=== PATIENT | female | born 1995 | race Caucasian/White ===

== ENCOUNTER 2017-12-22 20:02 | Emergency (ER) | payer BC ==
[2017-12-22 21:34] LABS: ABS Basophils 0.1 10^3/ul (0-0.2); ABS Eosinophils 0.6 10^3/ul (0-0.6); ABS Lymphocytes 2.1 10^3/ul (1.0-4.8); ABS Monocytes 0.7 10^3/ul (0-0.8); ABS Nucleated RBC 0 10^3/ul; Eosinophil % 7.4 % (0-6); Hematocrit 39 % (35-47); Hemoglobin 13.2 g/dl (12.0-16.0); Lymphocyte % 25.1 % (25-47); Mean Corpuscular HGB Conc 34 g/dl (31-36); Mean Corpuscular Hemoglobin 28 pg (27-31); Mean Corpuscular Volume 84 fL (80-97); Mean Platelet Volume 8.5 um3 (7.4-10.4); Nucleated Red Blood Cells % 0; Platelet Count 272 10^3/ul (150-450); Red Blood Count 4.64 10^6/ul (4.00-5.40); Red Cell Distribution Width 13 % (10.5-15); White Blood Count 8.5 10^3/ul (3.5-10.8)
[2017-12-22 21:51] LABS: EGFR Non-African American 85.3 (>60)
[2017-12-23 01:13] VITALS: BP 109/71
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
== END 2017-12-23 00:10 | disposition home or self-care (01) ==
LOC: ED 20:02
DX: F32.9 Major depressive disorder, single episode, unspecified (principal); R45.851 Suicidal ideations; F43.10 Post-traumatic stress disorder, unspecified; F41.9 Anxiety disorder, unspecified
CPT/HCPCS: 36415; 80053; 80320; 80329; 84443; 85025; 93005; 99283; G0480

== ENCOUNTER 2018-03-21 11:33 | Emergency (ER) | payer BC ==
[2018-03-21 12:04] VITALS: BP 133/65
--- NOTE | 2018-03-21 12:07 | UC ---
UC General HPI - HPI Summary HPI Summary: 22 yo female presents accompanied by father with several complaints. She tells me that a couple of months ago she was diagnosed with mono. Over the last week she has felt fatigued. The last 2 days has felt body aches with some nausea. This morning she vomited once. She feels very similar to when she had mono. She has taken ibuprofen with no relief of her symptoms. Denies fever, chills, cough , SOB, chest pain, abdominal pain, diarrhea, dysuria. - History of Current Complaint Chief Complaint: UCGeneralIllness Stated Complaint: BODYACHES,VOMITING Time Seen by Provider: 03/21/18 12:07 Hx Obtained From: Patient Hx Last Menstrual Period: unknown Onset/Duration: Gradual Onset Onset Severity: Moderate Current Severity: Moderate Pain Intensity: 7 - Allergy/Home Medications Allergies/Adverse Reactions: Allergies Allergy/AdvReac Type Severity Reaction Status Date / Time No Known Allergies Allergy Verified 12/22/17 20:11 Home Medications: Home Medications LORazepam [Lorazepam] 0.5 mg PO TID PRN 03/21/18 [History Confirmed 03/21/18] Methylphenidate HCl [Methylphenidate HCl ER] 54 mg PO DAILY 03/21/18 [History Confirmed 03/21/18] Venlafaxine ER (NF) [Effexor ER (NF)] 1 tab PO DAILY 03/21/18 [History Confirmed 03/21/18] PMH/Surg Hx/FS Hx/Imm Hx - Additional Past Medical History Additional PMH: ADHD Psychological History: Anxiety, Depression, Bipolar Disorder - Surgical History Surgical History: Yes Surgery Procedure, Year, and Place: wisdom tooth removal - Family History Known Family History: Positive: None, Other - suicide attempt in father (not completed) Family History: Father: bipolar disorder - Social History Occupation: Student Lives: With Family Alcohol Use: None Substance Use Type: None Smoking Status (MU): Never Smoked Tobacco Review of Systems Constitutional: Fatigue, Other - Body aches Skin: Negative Eyes: Negative ENT: Negative Respiratory: Negative Cardiovascular: Negative Gastrointestinal: Vomiting, Nausea Genitourinary: Negative Neurovascular: Negative Musculoskeletal: Negative Neurological: Negative Psychological: Negative All Other Systems Reviewed And Are Negative: Yes Physical Exam - Summary Physical Exam Summary: GENERAL: NAD. WDWN. No pain distress. SKIN: No rashes, sores, lesions, or open wounds. HEENT: Head: AT/NC Eyes: EOM intact. Conjunctiva clear without inflammation or discharge. Ears: Hearing grossly normal. TMs intact, no bulging, erythema, or edema. Nose: Nasal mucosa pink and moist. NTTP maxillary and frontal sinus. Throat: Posterior oropharynx without exudates, erythema, or tonsillar enlargement. Uvula midline. NECK: Supple. Nontender. No lymphadenopathy. CHEST: CTAB. No r/r/w. No accessory muscle use. Breathing comfortably and in no distress. CV: RRR. Without m/r/g. Pulses intact. Cap refill <2seconds ABDOMEN: Soft. NTTP. No distention or guarding. No organomegaly. No CVA tenderness. Bowel sounds present NEURO: Alert. PSYCH: Age appropriate behavior. Triage Information Reviewed: Yes Vital Signs: Initial Vital Signs Temp 98.2 F 03/21/18 11:54 Pulse 68 03/21/18 11:54 Resp 18 03/21/18 11:54 BP 133/65 03/21/18 11:54 Pulse Ox 100 03/21/18 11:54 Laboratory Tests 03/21/18 03/21/18 03/21/18 12:16 12:28 12:30 POC Urine Color Dark yellow POC Urine Clarity Clear POC Urine pH 6.0 POC Ur Specif Goessel 1.025 POC Urine Protein Negative POC Ur Glucose (UA) Negative POC Urine Ketones Negative POC Urine Blood Negative POC Urine Nitrite Negative POC Urine Bilirubin Negative POC Urine Urobilinogen 0.2 POC U Leukocyte Esteras Trace A POC Ur Test Negative Influenza A (Rapid) Negative Influenza B (Rapid) Negative Vital Signs Reviewed: Yes Course/Dx - Course Course Of Treatment: UA with trace leuks, but she is without dysuria, thus will wait for culture to return. negative. Flu negative. Father is requesting labwork for lyme and mono. Discussed at length that her symptoms are likely viral and that her mono will continue to be positive if she tested positive a few months ago. Pt also would like labwork. Will draw for CBC, CMP, lyme, and mono with EBV. She was given Zofran in the clinical setting with good relief of nausea. F/u with PCP if symptoms persist. - Differential Dx - Multi-Symptom Provider Diagnoses: Viral syndrome. Body aches. Nausea. vomiting Discharge - Sign-Out/Discharge Documenting (check all that apply): Patient Departure All imaging exams completed and their final reports reviewed: No Studies - Discharge Plan Condition: Stable Disposition: HOME Prescriptions: Ondansetron ODT TAB* [Zofran 4 MG Odt TAB*] 4 mg PO Q8H PRN #12 tab.odt MDD 3 PRN Reason: Nausea Patient Education Materials: Mononucleosis (ED), Viral Syndrome (ED) Referrals: Kaykay RAMÍREZ,July Pearce [Primary Care Provider] - Additional Instructions: If you develop a fever, shortness of breath, chest pain, new or worsening symptoms - please call your PCP or go to the ED. 1) Rest and drink plenty of fluids 2) If your symptoms persist or worsen - please follow up with your primary doctor or go to the ER - Billing Disposition and Condition Condition: STABLE Disposition: Home
[2018-03-21] MEDS ORDERED: Ondansetron ODT TAB* 4 MG PO ONE (12:13)
[2018-03-21 16:28] LABS: ABS Basophils 0 10^3/ul (0-0.2); ABS Eosinophils 0.4 10^3/ul (0-0.6); ABS Lymphocytes 2.2 10^3/ul (1.0-4.8); ABS Monocytes 0.5 10^3/ul (0-0.8); ABS Neutrophils 4.7 10^3/ul (1.5-7.7); ABS Nucleated RBC 0 10^3/ul; Eosinophil % 5.4 % (0-6); Hematocrit 40 % (35-47); Hemoglobin 13.8 g/dl (12.0-16.0); Lymphocyte % 27.3 % (25-47); Mean Corpuscular HGB Conc 34 g/dl (31-36); Mean Corpuscular Hemoglobin 28 pg (27-31); Mean Corpuscular Volume 82 fL (80-97); Mean Platelet Volume 9.5 um3 (7.4-10.4); Nucleated Red Blood Cells % 0; Platelet Count 304 10^3/ul (150-450); Red Blood Count 4.89 10^6/ul (4.00-5.40); Red Cell Distribution Width 14 % (10.5-15); White Blood Count 7.9 10^3/ul (3.5-10.8)
[2018-03-21 17:15] LABS: EGFR Non-African American 106.7 (>60)
--- NOTE | 2018-03-23 18:27 | UC ---
- Progress Note Progress Note: CBC, CMP, urine, lyme, and mono all negative However EBV IGM is positive which indicates a viral infection similar to mono that is currently active or has been active within the last 90-120days. Given that she has an extensive hx with mono (over a year ago), lyme, and other tick borne illnesses - I recommend that she follow up with Dr. Smith of infectious disease for further investigation of why her illness becomes seemingly reactivated. Discharge - Sign-Out/Discharge Documenting (check all that apply): Post-Discharge Follow Up All imaging exams completed and their final reports reviewed: No Studies - Discharge Plan Condition: Stable Disposition: HOME Prescriptions: Ondansetron ODT TAB* [Zofran 4 MG Odt TAB*] 4 mg PO Q8H PRN #12 tab.odt MDD 3 PRN Reason: Nausea Patient Education Materials: Mononucleosis (ED), Viral Syndrome (ED) Referrals: Kaykay RAMÍREZ,July Pearce [Primary Care Provider] - Sarah SANTIAGO,Stanton Cuevas [Medical Doctor] - As Soon As Possible Additional Instructions: If you develop a fever, shortness of breath, chest pain, new or worsening symptoms - please call your PCP or go to the ED. 1) Rest and drink plenty of fluids 2) If your symptoms persist or worsen - please follow up with your primary doctor or go to the ER - Billing Disposition and Condition Condition: STABLE Disposition: Home
== END 2018-03-21 12:55 | disposition home or self-care (01) ==
LOC: UCEAST 11:33
DX: B34.9 Viral infection, unspecified (principal); R11.2 Nausea with vomiting, unspecified; Z86.19 Personal history of other infectious and parasitic diseases
CPT/HCPCS: 36415; 80053; 81003; 84702; 85025; 86308; 86618; 86664; 86665; 87086; 99212; A9270-GY; G0463

== ENCOUNTER 2018-08-03 14:25 | Emergency (ER) | payer BC, OTHER ==
[2018-08-03] MEDS ORDERED: Acetaminophen TAB* 325 MG PO ONE (15:48)
--- NOTE | 2018-08-03 17:25 | ED ---
Head Injury - HPI Summary HPI Summary: Pt. is a 22 y.o female who presents to the ER for a head injury that occurred roughly two hours ago. 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. Pt. states when she got out of her call at work today she slipped on ice, fell back and hit the back of her head of the pavement. Pt. states she did not loose consciousness but states she immediately felt very woozy. Pt. states since fall her headache is getting worse and is very light sensitive. Pt. notes nausea without vomiting. Pt. also c /o neck pain. No other injuries were sustained. No past medical hx. Sxs are moderate in severity. - History Of Current Complaint Chief Complaint: EDHeadInjury Stated Complaint: FALL/HIT HEAD Time Seen by Provider: 08/03/18 15:24 Hx Obtained From: Patient Hx Last Menstrual Period: unknown Pain Intensity: 4 - Allergies/Home Medications Allergies/Adverse Reactions: Allergies Allergy/AdvReac Type Severity Reaction Status Date / Time No Known Allergies Allergy Verified 12/22/17 20:11 PMH/Surg Hx/FS Hx/Imm Hx Previously Healthy: Yes Endocrine/Hematology History: Denies: Hx Diabetes Cardiovascular History: Denies: Hx Hypertension Psychiatric History: Reports: Hx Anxiety, Hx Depression, Hx Post Traumatic Stress Disorder Denies: Hx Eating Disorder - Surgical History Surgery Procedure, Year, and Place: wisdom tooth removal Infectious Disease History: No Infectious Disease History: Denies: Traveled Outside the [place] in Last 30 Days - Family History Known Family History: Positive: None, Other - suicide attempt in father (not completed) Family History: Father: bipolar disorder - Social History Occupation: Employed Full-time Lives: With Family Alcohol Use: None Hx Substance Use: No Substance Use Type: Reports: None Hx Tobacco Use: No Smoking Status (MU): Never Smoked Tobacco Review of Systems Positive: Photophobia ENT: Negative Cardiovascular: Negative Negative: Chest Pain Respiratory: Negative Negative: Shortness Of Breath Positive: Nausea. Negative: Abdominal Pain Positive: Other - neck pain Skin: Negative Positive: Headache. Negative: Weakness, Paresthesia, Numbness, Syncope All Other Systems Reviewed And Are Negative: Yes Physical Exam Triage Information Reviewed: Yes Vital Signs On Initial Exam: Initial Vitals Temp Pulse Resp BP Pulse Ox 98.8 F 82 18 152/104 100 08/03/18 14:32 08/03/18 14:32 08/03/18 14:32 08/03/18 14:32 08/03/18 14:32 Vital Signs Reviewed: Yes Appearance: Positive: Well-Appearing - Pt. sitting up in bed appears uncomfortable but nontoxic. Skin: Positive: Warm, Dry Head/Face: Positive: Other - Large hematoma to posterior scalp. No laceration. Eyes: Positive: Normal, EOMI, JEFF, Conjunctiva Clear Neck: Positive: Supple, Other: - Midline tenderness. Respiratory/Lung Sounds: Positive: Clear to Auscultation, Breath Sounds Present Cardiovascular: Positive: Normal Musculoskeletal: Positive: Normal, Strength/ROM Intact Neurological: Positive: Normal, Alert, Oriented to Person Place, Time, CN Intact II-III, Finger to Nose - normal, Facial Symmetry, Speech Normal. Negative: Disoriented, Pronator Drift Present Psychiatric: Positive: Affect/Mood Appropriate - Shaun Coma Scale Best Eye Response: 4 - Spontaneous Best Motor Response: 6 - Obeys Commands Best Verbal Response: 5 - Oriented Coma Scale Total: 15 Diagnostics - Vital Signs Vital Signs Temp Pulse Resp BP Pulse Ox 08/03/18 14:32 98.8 F 82 18 152/104 100 - Laboratory Lab Statement: Any lab studies that have been ordered have been reviewed, and results considered in the medical decision making process. Head Injury Course/Dx Course Of Treatment: Pt. presenting for posterior head injury that occured about 2 hours ago. Pt. is c/o worsening and more intense h/a since fall. She has no neurological deficits on exam. Pt. also c/o midline neck tenderness. Pt. does have a large posterior hematoma after striking pavement. Discussed risk vs benefit of obtain CT scan. Discussed with pt. option of observation. Pt. would like to go ahead with CT scan to r/o bleed/liza fx. Head and neck negative for acute findings other than straightening of lordotic curve. Results discussed. Advised pt. to avoid reading, computer strength in the TV, cellphone screens. Tylenol or Motrin for pain as directed. Ice had intermittently. Close follow-up with family doctor return to the ER if symptoms change or worsen. Work excuse given. He is - Diagnoses Differential Diagnosis/HQI/PQRI: Cerebral Contusion, Cervical Sprain, Concussion Without LOC, Contusion, Hematoma, Intracranial Bleed, Laceration, Skull Fracture Provider Diagnoses: Head injury, Scalp contusion, Cervical strain Discharge - Sign-Out/Discharge Documenting (check all that apply): Patient Departure - Discharge Plan Condition: Good Disposition: HOME Patient Education Materials: Cervical Strain (ED), Concussion (ED), Head Injury (ED) Forms: *Work Release Referrals: Kaykay RAMÍREZ,July Pearce [Primary Care Provider] - Additional Instructions: Call PCP on Monday to schedule a close follow up appointment Tylenol or Motrin for pain as directed Avoid reading, cell phone, TV, and computer use Return to ER if symptoms change or worsen - Billing Disposition and Condition Condition: GOOD Disposition: Home
[2018-08-03 18:03] VITALS: BP 127/84
== END 2018-08-03 18:02 | disposition home or self-care (01) ==
LOC: ED 14:25
DX: S09.90XA Unspecified injury of head, initial encounter (principal); S16.1XXA Strain of muscle, fascia and tendon at neck level, initial encounter; S00.03XA Contusion of scalp, initial encounter; R11.0 Nausea; M54.2 Cervicalgia; W19.XXXA Unspecified fall, initial encounter; Y92.9 Unspecified place or not applicable
CPT/HCPCS: 70450; 72125; 99282; A9270-GY

== ENCOUNTER 2018-12-16 09:24 | Emergency (ER) | payer MEDICARE, OTHER ==
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
[2018-12-16 11:01] VITALS: BP 160/104
== END 2018-12-16 11:10 | disposition home health service (06) ==
LOC: UCEAST 09:24
DX: R10.31 Right lower quadrant pain (principal)
CPT/HCPCS: 81003; 84702; 99212; G0463

== ENCOUNTER 2018-12-16 11:32 | Emergency (ER) | payer MEDICARE, OTHER ==
[2018-12-16] MEDS ORDERED: NS 0.9% 1000 ML** 1,000 ML IV ONE (12:02)
--- NOTE | 2018-12-16 12:05 | ED ---
Abdominal Pain/Female - HPI Summary HPI Summary: Pt. is a 23 y.o female who presents to the ER for RLQ abd. pain x 3 days. Pain started as mild and as increased today. Sharp and nature and worse with movement and palpation. Pt. notes N/V and decreased appetite. Denies vaginal dc , dysuria, flank pain, diarrhea, constipation. Pt. seen at [facility] where they performed a pelvic exam. Pt. states she had right adnexal tenderness on bimanual exam. Pt. states she has an IUD and [facility]. Pt. states she had routine apt. with them this past week and had cultures taken, pending results. Pt. denies concern for STIs. Pain is worse with movement. Rest improves pain. Sxs are moderate in severity. - History of Current Complaint Chief Complaint: EDAbdPain Stated Complaint: LOWER RT ABD PAIN/VOMITING PER PT Time Seen by Provider: 12/16/18 11:46 Hx Obtained From: Patient Hx Last Menstrual Period: 11/24/18 Pain Intensity: 99 Allergies/Adverse Reactions: Allergies Allergy/AdvReac Type Severity Reaction Status Date / Time No Known Allergies Allergy Verified 12/16/18 11:38 Home Medications: Home Medications Gosia 180 (NF) 180 mg PO DAILY PRN 12/16/18 [History Confirmed 12/16/18] PMH/Surg Hx/FS Hx/Imm Hx Previously Healthy: Yes Endocrine/Hematology History: Denies: Hx Diabetes Cardiovascular History: Denies: Hx Hypertension Psychiatric History: Reports: Hx Anxiety, Hx Depression, Hx Post Traumatic Stress Disorder Denies: Hx Eating Disorder - Surgical History Surgery Procedure, Year, and Place: wisdom tooth removal Infectious Disease History: No Infectious Disease History: Denies: Traveled Outside the [place] in Last 30 Days - Family History Known Family History: Positive: None, Other - suicide attempt in father (not completed); mother healthy and we.., Non-Contributory Family History: Father: bipolar disorder - Social History Occupation: Employed Full-time Lives: With Family Alcohol Use: Rare Hx Substance Use: No Substance Use Type: Reports: None Hx Tobacco Use: No Smoking Status (MU): Never Smoked Tobacco Review of Systems Positive: Chills. Negative: Fever Eyes: Negative ENT: Negative Cardiovascular: Negative Respiratory: Negative Positive: Abdominal Pain, Vomiting, Nausea. Negative: Diarrhea Genitourinary: Negative Negative: dysuria, discharge, flank pain All Other Systems Reviewed And Are Negative: Yes Physical Exam Triage Information Reviewed: Yes Vital Signs On Initial Exam: Initial Vitals Temp Pulse Resp BP Pulse Ox 98.3 F 91 18 159/110 99 12/16/18 11:34 12/16/18 11:34 12/16/18 11:34 12/16/18 11:34 12/16/18 11:34 Vital Signs Reviewed: Yes Appearance: Positive: Well-Appearing - Pt. lying in bed in NAD. SO present. Skin: Positive: Warm, Dry Head/Face: Positive: Normal Head/Face Inspection Eyes: Positive: Normal, EOMI, JEFF Neck: Positive: Supple Respiratory/Lung Sounds: Positive: Clear to Auscultation, Breath Sounds Present Cardiovascular: Positive: Normal, RRR Abdomen Description: Positive: Other: - Abd. is soft with tenderness mildly to RUQ and marked tenderness to RLQ with guarding.. Negative: CVA Tenderness (R), CVA Tenderness (L) Musculoskeletal: Positive: Normal, Strength/ROM Intact Neurological: Positive: Normal, CN Intact II-III Psychiatric: Positive: Affect/Mood Appropriate Diagnostics - Vital Signs Vital Signs Temp Pulse Resp BP Pulse Ox 12/16/18 11:34 98.3 F 91 18 159/110 99 - Laboratory Result Diagrams: 12/16/18 12:20 12/16/18 12:20 Lab Statement: Any lab studies that have been ordered have been reviewed, and results considered in the medical decision making process. Abdominal Pain Fem Course/Dx - Course Course Of Treatment: Patient presenting with ongoing worsening right lower quadrant pain with decreased appetite and nausea and vomiting 3 days. She is afebrile with stable vital signs. Patient does have marked tenderness to the right lower quadrant. Given ongoing worsening symptoms will obtain abdominal CT to evaluate for appendicitis. Patient declines pain medication. Blood work is unremarkable. Abd/pelvic CT per radiology: IMPRESSION: 1. NO EVIDENCE FOR APPENDICITIS. 2. 1.5 CM INVOLUTING RIGHT FOLLICULAR CYST AND SMALL AMOUNT OF FREE INTRAPERITONEAL FLUID. IN THE CUL-DE-SAC. 3. HEPATIC STEATOSIS. U/S ordered to evaluate blood flow to right ovary. U/S per radiology: IMPRESSION: 1. There is an involuting/hemorrhagic ovarian follicle in the right ovary. In the absence. of further symptoms, no specific follow-up is indicated in this premenstrual age woman. 2. Appropriately positioned IUD. Results discussed with pt. and family. Will dc home. Advised tylenol or motrin for pain, warm compress. Will f.u with HOME ASSESSMENT NURSE. To return to ER if sxs change or worsen. Pt. understands and agrees with plan. - Diagnoses Differential Diagnosis: Positive: Appendicitis, Constipation, Ectopic , Ovarian Cyst, Pelvic Inflammatory Disease, Peptic Ulcer Disease, Urinary Tract Infection Provider Diagnoses: Ovarian cyst Discharge - Sign-Out/Discharge Documenting (check all that apply): Patient Departure Patient Received Moderate/Deep Sedation with Procedure: No - Discharge Plan Condition: Good Disposition: HOME Patient Education Materials: Ovarian Cyst (ED) Forms: *Work Release Referrals: Wilbert Cohen MD [Medical Doctor] - Kaykay RAMÍREZ,July Pearce [Primary Care Provider] - Additional Instructions: Schedule a follow up appointment with HOME ASSESSMENT NURSE Tylenol or Motrin for pain as directed Can apply warm compresses Return to ER if symptoms change or worsen - Billing Disposition and Condition Condition: GOOD Disposition: Home
[2018-12-16 12:26] LABS: ABS Eosinophils 0.2 10^3/ul (0-0.6); ABS Lymphocytes 1.7 10^3/ul (1.0-4.8); ABS Monocytes 0.5 10^3/ul (0-0.8); Eosinophil % 2.9 %; Hematocrit 45 % (35-47); Hemoglobin 15.2 g/dL (12.0-16.0); Lymphocyte % 22.5 %; Mean Corpuscular HGB Conc 34 g/dL (31-36); Mean Corpuscular Hemoglobin 29 pg (27-31); Mean Corpuscular Volume 86 fL (80-97); Mean Platelet Volume 8.6 fL (7.4-10.4); Platelet Count 257 10^3/uL (150-450); Red Cell Distribution Width 13 % (10-15); White Blood Count 7.5 10^3/uL (3.5-10.8)
[2018-12-16 12:43] LABS: ALT 13 U/L (7-52); AST 17 U/L (13-39); Albumin 4.9 g/dL (3.2-5.2); Albumin/Globulin Ratio 1.7 (1-3); Alkaline Phosphatase 84 U/L (34-104); Anion Gap 7 mmol/L (2-11); BUN/Creatinine Ratio 8.8 (8-20); Blood Urea Nitrogen 7 mg/dL (6-24); CO2 Carbon Dioxide 26 mmol/L (22-32); Calcium 9.8 mg/dL (8.6-10.3); Chloride 105 mmol/L (101-111); EGFR African American 109.6 (>60); EGFR Non-African American 90.5 (>60); Globulin 2.9 g/dL (2-4); Glucose 95 mg/dL (70-100); Potassium 4.6 mmol/L (3.5-5.0); Sodium 138 mmol/L (135-145); Total Protein 7.8 g/dL (6.4-8.9)
[2018-12-16 12:49] LABS: HCG Pregnancy < 0.60 mIU/mL
[2018-12-16 12:55] LABS: Urine Appearance Clear; Urine Bacteria Absent (Absent); Urine Bilirubin Negative (Negative); Urine Blood Negative (Negative); Urine Color Yellow; Urine Glucose Negative (Negative); Urine Ketones Negative (Negative); Urine Nitrite Negative (Negative); Urine Protein Negative (Negative); Urine Red Blood Cell Trace(0-2/hpf) (Absent); Urine Specific Gravity 1.011 (1.010-1.030); Urine Squamous Epithelial Cell Present (Absent); Urine Urobilinogen Negative (Negative); Urine White Blood Cell Trace(0-5/hpf) (Absent)
[2018-12-16] MEDS ORDERED: Iohexol 300* (CONTRAST) 10 ML SDV IV ONE (13:41)
[2018-12-16 16:30] VITALS: BP 126/83
== END 2018-12-16 16:30 | disposition home or self-care (01) ==
LOC: ED 11:32
DX: N83.209 Unspecified ovarian cyst, unspecified side (principal)
CPT/HCPCS: 36415; 74177; 76856; 80053; 81003; 81015; 84702; 85025; 86140; 87086; 96360; 96361; 99283; Q9967

== ENCOUNTER 2019-04-15 08:35 | Emergency (ER) | payer OTHER ==
[2019-04-15 08:44] VITALS: BP 112/73
--- NOTE | 2019-04-15 08:47 | UC ---
Skin Complaint HPI - HPI Summary HPI Summary: 23 yo female presents with tick bite. She tells me that on 04/13 she was hiking and on 04/14 removed a tick from her left upper arm. She thinks it was attached about 24 hours. Unsure if the tick was engorged. Has a red ring to the area where the tick bit her. - History of Current Complaint Chief Complaint: UCSkin Time Seen by Provider: 04/15/19 08:46 Stated Complaint: TICK BITE Hx Obtained From: Patient Hx Last Menstrual Period: 11/24/18 Onset/Duration: Sudden Onset Onset Severity: Mild Current Severity: Mild Pain Intensity: 4 - Allergy/Home Medications Allergies/Adverse Reactions: Allergies Allergy/AdvReac Type Severity Reaction Status Date / Time No Known Allergies Allergy Verified 04/15/19 08:44 PMH/Surg Hx/FS Hx/Imm Hx - Additional Past Medical History Additional PMH: ADHD Respiratory History: Asthma Psychological History: Anxiety, Depression - Surgical History Surgical History: Yes Surgery Procedure, Year, and Place: wisdom tooth removal - Family History Known Family History: Positive: Other - suicide attempt in father (not completed ); mother healthy and we.., Non-Contributory Family History: Father: bipolar disorder - Social History Occupation: Student Alcohol Use: Rare Substance Use Type: Marijuana Smoking Status (MU): Never Smoked Tobacco Review of Systems All Other Systems Reviewed And Are Negative: No Constitutional: Positive: Negative Skin: Positive: Other - Tick bite Respiratory: Positive: Negative Cardiovascular: Positive: Negative Neurovascular: Positive: Negative Neurological: Positive: Negative Psychological: Positive: Negative Physical Exam - Summary Physical Exam Summary: GENERAL: NAD. WDWN. No pain distress. SKIN: LEFT UPPER ARM: medial aspect there is a 7mm diameter of mild erythema and edema with central 1mm area of superficial skin loss. No streaking, bleeding , or drainage. NECK: Supple. Nontender. No lymphadenopathy. CHEST: No accessory muscle use. Breathing comfortably and in no distress. CV: Pulses intact. Cap refill <2seconds NEURO: Alert. PSYCH: Age appropriate behavior. Triage Information Reviewed: Yes Vital Signs: Initial Vital Signs Temp 98.1 F 04/15/19 08:40 Pulse 71 04/15/19 08:40 Resp 18 04/15/19 08:40 BP 112/73 04/15/19 08:40 Pulse Ox 100 04/15/19 08:40 Vital Signs Reviewed: Yes Course/Dx - Course Course Of Treatment: Tick bite <24 hours. Discussed role of prophylactic doxycycline with pt and she prefers to be treated at this time. In the clinic she was given 200mg doxycycline and advised to monitor for signs/ symptoms of lyme and f/u if develops - Diagnoses Provider Diagnosis: Tick bite Discharge ED - Sign-Out/Discharge Documenting (check all that apply): Patient Departure All imaging exams completed and their final reports reviewed: No Studies - Discharge Plan Condition: Stable Disposition: HOME Patient Education Materials: Tick Bite (ED) Referrals: July Mccracken PA [Primary Care Provider] - Additional Instructions: TICK BITE: You have been bitten by a tick. Once the tick is removed, these "bites" usually cause no problems. Tick fever, tick paralysis, Diboll Spotted fever, and Lyme disease are uncommon -- but you should mention this tick bite to your doctor if you develop unusual symptoms in the next several weeks. If you develop any of the following, please see your physician promptly: (1) Fever, chills, or generalized malaise associated with a headache. (2) A red round area at the site of the bite (or elsewhere) (3) Joint pain, joint swelling or generalized weakness. (4) Redness, swelling, or drainage at the site of the bite. Ticks do not have a typical "head" attached to their body. There are mouth parts sticking out which they use to feed. If there are mouth parts left behind in the wound there is NO increased risk of Lyme infection or disease transmission. If mouth parts remain after tick removal, the best thing to do is apply warm soaks to the area 3-4 times per day to encourage the skin to expel the foreign material. WHEN A TICK IS NOT ENGORGED AND HAS BEEN ON LESS THAN 24 HOURS - THE RISK FOR LYME IS NEGLIGIBLE. YOU CAN REMOVE THE TICK AND OBSERVE THE AREA ON YOUR OWN. - Billing Disposition and Condition Condition: STABLE Disposition: Home
[2019-04-15] MEDS ORDERED: DOXYcycline CAP(*) 100 MG PO ONE (08:58)
== END 2019-04-15 09:03 | disposition home or self-care (01) ==
LOC: UCEAST 08:35
DX: S40.862A Insect bite (nonvenomous) of left upper arm, initial encounter (principal); J45.909 Unspecified asthma, uncomplicated; F90.9 Attention-deficit hyperactivity disorder, unspecified type; W57.XXXA Bitten or stung by nonvenomous insect and other nonvenomous arthropods, initial encounter; Y92.9 Unspecified place or not applicable
CPT/HCPCS: 99212; A9270-GY; G0463

== ENCOUNTER 2019-05-20 09:34 | Emergency (ER) | payer OTHER ==
--- OUTSIDE RECORDS SUMMARY | 2019-05-20 09:40 | XMS REPORT ---
:1995 Author Name Anamaria Arroyo Address [facility] [address] [place] [address] Care Team Providers Name Role Phone Anamaria Arroyo Unavailable Unavailable Komal Pool Unavailable Unavailable Allergies, Adverse Reactions, Alerts Allergy Code CodeSystem Reaction Severity Status Substance RxNorm Medications Medication Medication Medication Start Route Dose Status Fill Code CodeSystem Date Instructions RxNorm NoCurrentDosage No Longer NoCurrentFreque Active ncy methylphenidate RxNorm 2019-0 oral 54 mg tablet Active for 30 HCl 6-14 extended day(s) release 24hr methylphenidate RxNorm 2019-0 oral 54 mg tablet No for 30 HCl 5-13 extended Longer day(s) release 24hr Active Hospital Discharge Medications Medication Direction Start Date Status Indications Fill Instuctions No Discharge Medication Problems Problem Name Code CodeSystem Start Date End Date Status SNOMED-CT 2018-09-28 Active SNOMED-CT 2018-10-11 Active SNOMED-CT 2018-10-11 Active Laboratory Values/Results Test Test Code Code System Actual Result Date LOINC Procedures Procedure Name Code CodeSystem Target Site Date of Procedure SNOMED-CT () 2018-10-30 SNOMED-CT () 2018-11-02 SNOMED-CT () 2019-02-06 SNOMED-CT () 2019-02-20 SNOMED-CT () 2019-03-25 Encounter Diagnosis Code CodeSystem Description Date Finding Finding Status Code 17567 [facility] Psychotherapy - 2019-03-10 - Active Individual 30 min 6 SNOMED-CT Vital Signs Vitals Date Value Immunizations Vaccine Name Vaccine Code CodeSystem Date Status Social History Element Description Start Date End Date Code CodeSystem Description SNOMED-CT Hospital Discharge Instructions Reason For Referral
[2019-05-20 09:42] VITALS: BP 139/95
--- NOTE | 2019-05-20 09:46 | UC ---
Throat Pain/Nasal Atul HPI - HPI Summary HPI Summary: Patient is a 23yo female presenting with sore throat and swollen tonsils x5-6 days. Also notes she looked in her throat today and noticed white patches. States throat feels like someone rubbed sandpaper in it. Notes L ear pain. Denies other URI symptoms. Denies cough, SOB, and wheezing. Denies fever, chills , and headache. Denies decreased appetite or fluid intake. - History of Current Complaint Chief Complaint: UCRespiratory Stated Complaint: SORE THROAT Hx Obtained From: Patient Hx Last Menstrual Period: 11/24/18 Onset/Duration: Gradual Onset, Lasting Days Severity: Moderate Pain Intensity: 4 Pain Scale Used: 0-10 Numeric - Allergies/Home Medications Allergies/Adverse Reactions: Allergies Allergy/AdvReac Type Severity Reaction Status Date / Time No Known Allergies Allergy Verified 05/20/19 09:43 PMH/Surg Hx/FS Hx/Imm Hx Previously Healthy: Yes - Surgical History Surgical History: Yes Surgery Procedure, Year, and Place: wisdom tooth removal - Family History Known Family History: Positive: Other - suicide attempt in father (not completed ); mother healthy and we.., Non-Contributory Family History: Father: bipolar disorder - Social History Occupation: Employed Part-time, Student Alcohol Use: Rare Substance Use Type: None Smoking Status (MU): Never Smoked Tobacco Review of Systems All Other Systems Reviewed And Are Negative: Yes Constitutional: Positive: Negative ENT: Positive: Sore Throat, Ear Ache - Left. Negative: Nasal Discharge, Sinus Congestion, Sinus Pain/Tenderness Respiratory: Positive: Negative Cardiovascular: Positive: Negative Neurological: Positive: Negative Physical Exam Triage Information Reviewed: Yes Appearance: Well-Appearing, No Pain Distress, Well-Nourished Vital Signs: Initial Vital Signs Temp 98.5 F 05/20/19 09:39 Pulse 107 05/20/19 09:39 Resp 18 05/20/19 09:39 BP 139/95 05/20/19 09:39 Pulse Ox 100 05/20/19 09:39 Lab Results 05/20/19 Range/Units 09:54 Group A Strep Rapid Negative (Negative) Vital Signs Reviewed: Yes Eyes: Positive: Conjunctiva Clear ENT: Positive: Hearing grossly normal, Pharyngeal erythema, TMs normal, Tonsillar swelling - b/l, Tonsillar exudate - b/l extensive white patches, Uvula midline. Negative: Nasal congestion, Nasal drainage, Trismus, Muffled voice, Hoarse voice Neck: Positive: Supple, Nontender, Enlarged Nodes @ - R anterior cervical nodes Respiratory Exam: Normal Respiratory: Positive: Lungs clear, Normal breath sounds, No respiratory distress Cardiovascular Exam: Normal Cardiovascular: Positive: RRR. Negative: Tachycardia Neurological: Positive: Alert Psychological: Positive: Age Appropriate Behavior Skin Exam: Normal Throat Pain/Nasal Course/Dx - Course Course Of Treatment: Discussed negative rapid strep test with patient. I am treating with penicillin v for bacterial source based on PE findings and duration of symptoms. A throat culture was also sent. Informed patient that she will be notified with any treatment need to be made based on results. Patient voiced understanding and agreed with treatment plan. - Differential Dx/Diagnosis Provider Diagnosis: Exudative pharyngitis Discharge ED - Sign-Out/Discharge Documenting (check all that apply): Patient Departure All imaging exams completed and their final reports reviewed: No Studies - Discharge Plan Condition: Stable Disposition: HOME Prescriptions: Penicillin VK 500 MG TAB(NF) [Penicillin VK 500 mg Tab] 500 mg PO BID #20 tab Patient Education Materials: Pharyngitis (ED) Forms: *Work Release Referrals: July Mccracken PA [Primary Care Provider] - If Needed Additional Instructions: As discussed, you tested negative for strep throat today, but it is possible that your symptoms are still caused by a bacterial source. A throat culture has been sent and you will be notified with any treatment changes needed based on the results. Take Penicillin as prescribed for the treatment of symptoms. You may take ibuprofen and/or tylenol as directed for fever and pain relief. You may use over the counter throat sprays or lozenges for symptomatic relief. Get plenty of rest and fluids. Follow up with your PCP if symptoms do not resolve within 10 days. - Billing Disposition and Condition Condition: STABLE Disposition: Home
== END 2019-05-20 10:35 | disposition home or self-care (01) ==
LOC: UCEAST 09:34
DX: J02.9 Acute pharyngitis, unspecified (principal); H92.02 Otalgia, left ear
CPT/HCPCS: 87070; 87651; 99212; G0463

== ENCOUNTER 2019-06-25 16:58 | Emergency (ER) | payer SELFPAY ==
[2019-06-25] MEDS ORDERED: Ondansetron ODT TAB* 4 MG PO ONE (19:49)
--- NOTE | 2019-06-25 19:50 | ED ---
Abdominal Pain/Female - HPI Summary HPI Summary: The patient is a 23 y/o F presenting to [facility] accompanied by boyfriend with a chief complaint of left-sided abdominal pain at 1500 today that has persisted. She reports that yesterday she felt lethargic with diffuse abdominal discomfort and nausea that seemed to subside last night. She then was at work today and felt nauseous again and had a sudden onset sharp left-sided abdominal pain in the LLQ with a decreased appetite. She denies any fevers, chills, constipation, vomiting, dysuria, urinary frequency, hematuria, vaginal discharge, or vaginal bleeding. She states she currently has her period for the last 3-4 days, which has been heavier than normal as she has an IUD. She states she had a similar experience a few months ago and was diagnosed with an ovarian cyst. She has taken Ibuprofen for pain around 1500. Currently, her pain is rated 4/10 at rest but worsens with movement. Last BM was 1-2 days ago. No other PMHx. Nonsmoker, occasional EtOH, no substance use. Medications reviewed. Allergies noted. - History of Current Complaint Chief Complaint: EDAbdPain Stated Complaint: ABD PAIN PER PT Time Seen by Provider: 06/25/19 19:40 Hx Obtained From: Patient Hx Last Menstrual Period: 11/24/18 Onset/Duration: Sudden Onset, Lasting Hours, Still Present Timing: Constant Severity Initially: Severe Severity Currently: Moderate Pain Intensity: 4 Pain Scale Used: 0-10 Numeric Location: Discrete At: LLQ - and left-sided Radiates: No Character: Sharp Aggravating Factor(s): Movement Alleviating Factor(s): Other: - rest Associated Signs and Symptoms: Positive: Decreased Appetite, Nausea, Other: - lethargy; Negative: chills. Negative: Fever, Constipation, Urinary Symptoms - hematuria, dysuria,, Vaginal Bleeding, Vaginal Discharge, Vomiting Allergies/Adverse Reactions: Allergies Allergy/AdvReac Type Severity Reaction Status Date / Time No Known Allergies Allergy Verified 06/25/19 17:03 PMH/Surg Hx/FS Hx/Imm Hx Endocrine/Hematology History: Denies: Hx Diabetes, Hx Thyroid Disease Cardiovascular History: Denies: Hx Hypertension Respiratory History: Denies: Hx Asthma, Hx Chronic Obstructive Pulmonary Disease (COPD) GI History: Denies: Hx Ulcer History: Reports: Other Problems/Disorders - ovarian cyst Psychiatric History: Reports: Hx Anxiety, Hx Depression, Hx Post Traumatic Stress Disorder Denies: Hx Eating Disorder - Surgical History Surgical History: Yes Surgery Procedure, Year, and Place: wisdom tooth removal Infectious Disease History: No Infectious Disease History: Denies: Hx Hepatitis, Hx Human Immunodeficiency Virus (HIV), Traveled Outside the [place] in Last 30 Days - Family History Known Family History: Positive: Other - suicide attempt in father (not completed ); mother healthy and we.., Non-Contributory Family History: Father: bipolar disorder - Social History Alcohol Use: Occasionally Hx Substance Use: No Substance Use Type: Reports: None Hx Tobacco Use: No Smoking Status (MU): Never Smoked Tobacco Review of Systems Positive: Other - lethargic. Negative: Fever, Chills Positive: Abdominal Pain - left-sided, Nausea, Other - decreased appetite; Negative: constipation. Negative: Vomiting Negative: dysuria, discharge, frequency, hematuria, other - vaginal bleeding All Other Systems Reviewed And Are Negative: Yes Physical Exam - Summary Physical Exam Summary: Constitutional: Well-developed, Well-nourished, Alert. (-) Distressed Skin: Warm, Dry HENT: Normocephalic; Atraumatic Eyes: Conjunctiva normal Neck: Musculoskeletal ROM normal neck. (-) JVD, (-) Stridor, (-) Tracheal deviation Cardio: Rhythm regular, rate normal, Heart sounds normal; Intact distal pulses; Radial pulses are 2+ and symmetric. (-) Murmur Pulmonary/Chest wall: Effort normal. (-) Respiratory distress, (-) Wheezes, (-) Rales Abd: Soft, (+) tenderness in left adnexa, (-) flank tenderness (-) Distension, ( -) Guarding, (-) Rebound Musculoskeletal: (-) Edema Lymph: (-) Cervical adenopathy Neuro: Alert, Oriented x3 Psych: Mood and affect Normal Pelvic: Left adnexal tenderness, No CMT, No uterine tenderness, No vaginal discharge Triage Information Reviewed: Yes Vital Signs On Initial Exam: Initial Vitals Temp Pulse Resp BP Pulse Ox 98.6 F 95 18 153/93 100 06/25/19 17:00 06/25/19 17:00 06/25/19 17:00 06/25/19 17:00 06/25/19 17:00 Vital Signs Reviewed: Yes Procedures - Sedation Patient Received Moderate/Deep Sedation with Procedure: No Diagnostics - Vital Signs Vital Signs Temp Pulse Resp BP Pulse Ox 06/25/19 18:37 98.4 F 68 14 106/68 98 06/25/19 17:00 98.6 F 95 18 153/93 100 - Laboratory Result Diagrams: 06/25/19 19:57 06/25/19 19:57 Lab Statement: Any lab studies that have been ordered have been reviewed, and results considered in the medical decision making process. - Ultrasound Transvaginal US Ultrasound Interpretation Completed By: Radiologist Summary of Ultrasound Findings: Impression: Normal pelvic ultrasound examination. ED physician has reviewed this imaging report. Re-Evaluation - Re-Evaluation First Eval Re-Evaluation Time: 21:20 Change: Improved Comment: We discussed results and plan for discharge home. Abdominal Pain Fem Course/Dx - Course Course Of Treatment: Patient is here with left lower quadrant pain in the setting of her menstrual period. Patient does have tenderness at her left ovary but no tenderness outside of that. Patient had a pelvic exam showed no discharge or minimal bleeding. Patient had no evidence of cervicitis and is low risk for STDs per her. Patient had a CBC which showed no leukocytosis and a normal blood count. Patient had a normal CRP. Patient had an ultrasound showed no abnormality. Patient was given Zofran and Motrin with improvement in her symptoms. Patient was given [facility] follow-up. - Diagnoses Provider Diagnoses: LLQ pain Discharge ED - Sign-Out/Discharge Documenting (check all that apply): Patient Departure - Patient will be discharged home. - Discharge Plan Condition: Stable Disposition: HOME Prescriptions: Ondansetron TAB* [Zofran 4 MG Tab*] 4 mg PO Q8HR PRN #12 tab PRN Reason: vomiting Patient Education Materials: Acute Abdominal Pain (DC) Referrals: July Mccracken PA [Primary Care Provider] - 3 Days Gagandeep Montoya MD [Medical Doctor] - 3 Days Additional Instructions: Please take Ibuprofen as needed for pain and prescribed nausea medication. Follow up with your primary care provider in 1-3 days. Follow up with [facility] in 1-3 days. Return to the emergency department for any new or worsening symptoms such as worsening abdominal pain, urinary symptoms, or any other concerning symptoms. - Billing Disposition and Condition Condition: STABLE Disposition: Home - Attestation Statements Document Initiated by Chagomaxim: Yes Documenting Scribe: Nat Araujo Provider For Whom Krys is Documenting (Include Credential): Dr. Rodrigo Joiner MD Scribe Attestation: I, Nat Araujo, scribed for Dr. Rodrigo Joiner MD on 06/25/19 at 2127. Scribe Documentation Reviewed: Yes Provider Attestation: The documentation as recorded by the Nat casarez accurately reflects the service I personally performed and the decisions made by me, Dr. Rodrigo Joiner MD Status of Scribe Document: Viewed
[2019-06-25 20:04] LABS: ABS Eosinophils 0.2 10^3/ul (0-0.6); ABS Lymphocytes 1.7 10^3/ul (1.0-4.8); ABS Monocytes 0.8 10^3/ul (0-0.8); ABS Neutrophils 4.2 10^3/ul (1.5-7.7); Eosinophil % 2.3 %; Hematocrit 37 % (35-47); Hemoglobin 12.8 g/dL (12.0-16.0); Lymphocyte % 24.6 %; Mean Corpuscular HGB Conc 34 g/dL (31-36); Mean Corpuscular Hemoglobin 29 pg (27-31); Mean Corpuscular Volume 84 fL (80-97); Mean Platelet Volume 8.3 fL (7.4-10.4); Platelet Count 249 10^3/uL (150-450); Red Blood Count 4.43 10^6 /uL (3.70-4.87); Red Cell Distribution Width 13 % (10-15); White Blood Count 6.9 10^3/uL (3.5-10.8)
[2019-06-25 20:24] LABS: ALT 22 U/L (7-52); AST 24 U/L (13-39); Albumin 4.2 g/dL (3.2-5.2); Albumin/Globulin Ratio 1.8 (1-3); Alkaline Phosphatase 68 U/L (34-104); Anion Gap 7 mmol/L (2-11); BUN/Creatinine Ratio 14.5 (8-20); Blood Urea Nitrogen 12 mg/dL (6-24); CO2 Carbon Dioxide 27 mmol/L (22-32); Calcium 8.9 mg/dL (8.6-10.3); Chloride 105 mmol/L (101-111); EGFR Non-African American 86.8 (>60); Globulin 2.3 g/dL (2-4); Glucose 99 mg/dL (70-100); Potassium 3.6 mmol/L (3.5-5.0); Sodium 139 mmol/L (135-145); Total Protein 6.5 g/dL (6.4-8.9)
[2019-06-25 20:30] LABS: HCG Pregnancy < 0.60 mIU/mL
[2019-06-25] MEDS ORDERED: Ibuprofen TAB* 800 MG PO ONE (20:40)
[2019-06-25 20:43] LABS: Urine Appearance Cloudy; Urine Bilirubin Negative (Negative); Urine Blood 3+ (Negative); Urine Color Yellow; Urine Glucose Negative (Negative); Urine Ketones Negative (Negative); Urine Nitrite Negative (Negative); Urine Protein Negative (Negative); Urine Specific Gravity 1.012 (1.010-1.030); Urine Urobilinogen Negative (Negative)
[2019-06-25 20:45] LABS: Urine Bacteria Absent (Absent); Urine Red Blood Cell Trace(0-2/hpf) (Absent); Urine Squamous Epithelial Cell Present (Absent); Urine White Blood Cell Absent (Absent)
[2019-06-25 21:36] VITALS: BP 131/73
[2019-06-26 13:34] LABS: Chlamydia trachomatis NAA Negative (Negative); Neisseria gonorrhoeae (GC) NAA Negative (Negative)
== END 2019-06-25 21:35 | disposition home or self-care (01) ==
LOC: ED 16:58
DX: R10.32 Left lower quadrant pain (principal); R53.83 Other fatigue; F41.9 Anxiety disorder, unspecified; F32.9 Major depressive disorder, single episode, unspecified; F43.10 Post-traumatic stress disorder, unspecified
CPT/HCPCS: 36415; 76830; 80053; 81003; 81015; 84702; 85025; 87480; 87491; 87510; 87591; 99283; A9270-GY

== ENCOUNTER 2019-06-26 13:39 | Emergency (ER) | payer SELFPAY ==
[2019-06-26 14:00] VITALS: BP 130/90
--- NOTE | 2019-06-26 15:31 | UC ---
Abdominal Pain Female HPI - HPI Summary HPI Summary: 23-year-old woman comes in with chief complaint of right lower quadrant abdominal pain. Patient's felt fatigued did not well for couple weeks. 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 2 days ago she started having nausea and feeling a lot more ill. No fevers measured. She has had a runny nose and sore throat. Her tonsils are enlarged and she has a scheduled appointment for tonsillectomy on July 19, 2019. No chest congestion or shortness of breath. Yesterday around 3:00 in the afternoon while at work she had sudden onset of left lower quadrant abdominal pain. She went to the emergency department and had no fever. She had a normal white count and normal CBC CMP. Negative test. She has a trace of blood in her urine yesterday. Patient started her period 4 days ago. She does have an IUD in place. She had a pelvic exam. Her ultrasound did not have any positive findings. No complaint of any dysuria. Has not had a bowel movement in a day and a half. Patient reports she thinks she has not had a bowel movement because she had decreased by mouth intake. No prior abdominal surgeries. Patient feels like the pains about 4-5 out of 10 while standing still 7 out of 10 when she is active. Pain is worse with activity. Pain is down the right lower quadrant. - History of Current Complaint Chief Complaint: UCAbdominalPain Stated Complaint: ABDOMINAL PAIN Time Seen by Provider: 06/26/19 15:01 Hx Last Menstrual Period: 06/25/19 Pain Intensity: 6 Allergies/Adverse Reactions: Allergies Allergy/AdvReac Type Severity Reaction Status Date / Time No Known Allergies Allergy Verified 06/25/19 17:03 PMH/Surg Hx/FS Hx/Imm Hx Previously Healthy: Yes - IUD Psychological History: Anxiety, Depression Other Psychological History: add - Surgical History Surgical History: Yes Surgery Procedure, Year, and Place: wisdom tooth removal - Family History Known Family History: Positive: Other - suicide attempt in father (not completed ); mother healthy and we.., Non-Contributory Family History: Father: bipolar disorder - Social History Alcohol Use: Occasionally Substance Use Type: Marijuana Smoking Status (MU): Never Smoked Tobacco Review of Systems All Other Systems Reviewed And Are Negative: Yes Constitutional: Positive: Other - SEE HPI Skin: Positive: Negative Eyes: Positive: Negative ENT: Positive: Nasal Discharge, Sinus Congestion, Other - SEE HPI Respiratory: Positive: Negative Cardiovascular: Positive: Negative Gastrointestinal: Positive: Abdominal Pain, Other - SEE HPI Genitourinary: Positive: Negative Motor: Positive: Negative Neurovascular: Positive: Negative Musculoskeletal: Positive: Myalgia Neurological: Positive: Negative Psychological: Positive: Negative Is Patient Immunocompromised?: No Physical Exam Triage Information Reviewed: Yes Appearance: Well-Nourished, Ill-Appearing - MILD, Pain Distress - MILD AT REST. WORSENED WITH EXAM AND ROM. Vital Signs: Initial Vital Signs Temp 99.0 F 06/26/19 13:53 Pulse 86 06/26/19 13:53 Resp 18 06/26/19 13:53 BP 130/90 06/26/19 13:53 Pulse Ox 99 06/26/19 13:53 Vital Signs Reviewed: Yes Eye Exam: Normal Eyes: Positive: Conjunctiva Clear ENT: Positive: Tonsillar swelling - 2+ B/L Respiratory: Positive: Lungs clear, Normal breath sounds, No respiratory distress Cardiovascular: Positive: RRR Abdomen Description: Positive: Other: - Positive heelstrike positive obturator sign. Patient's tender to palpation the right lower quadrant and the left lower quadrant. Tenderness is worse on the right lower quadrant. Bowel Sounds: Positive: Hypoactive Musculoskeletal: Positive: Strength Intact, ROM Intact Neurological: Positive: Alert, Muscle Tone Normal Psychological: Positive: Age Appropriate Behavior Skin Exam: Normal Abd Pain Female Course/Dx - Course Course Of Treatment: Given the patient is right lower quadrant abdominal pain and also her pain is not improved since yesterday I recommended further evaluation emergency Department. They'll go by POV. - Differential Dx/Diagnosis Provider Diagnosis: Right lower quadrant abdominal pain, Pyuria Discharge ED - Sign-Out/Discharge Documenting (check all that apply): Patient Departure All imaging exams completed and their final reports reviewed: No Studies - Discharge Plan Condition: Stable Disposition: HOME-RECOMMEND TO ED Patient Education Materials: Acute Abdominal Pain (ED) Forms: *Work Release Referrals: July Mccracken PA [Primary Care Provider] - Additional Instructions: GO DIRECTLY TO THE EMERGENCY DEPARTMENT FOR FURTHER EVALUATION OF YOUR RIGHT LOWER QUADRANT ABDOMINAL PAIN. - Billing Disposition and Condition Condition: STABLE Disposition: Home-Recommend to ED
== END 2019-06-26 15:40 | disposition home health service (06) ==
LOC: UCEAST 13:39
DX: R10.31 Right lower quadrant pain (principal); R82.81 Pyuria; J34.89 Other specified disorders of nose and nasal sinuses
CPT/HCPCS: 81003; 87086; 99212; G0463

== ENCOUNTER 2019-06-26 16:42 | Emergency (ER) | payer BC ==
--- NOTE | 2019-06-26 18:38 | ED ---
Abdominal Pain/Female - HPI Summary HPI Summary: 23-year-old female with no significant past medical history presents to emergency department today complaining of right lower quadrant pain which began today. She states yesterday she was seen in the emergency department for evaluation of left lower quadrant pain which has currently resolved. Prior to arrival in the emergency department she was seen at urgent care who advised her to come to the emergency department for possible CT scan for investigation of possible appendicitis. Patient denies fever, chest pain, shortness of breath, rash, pain with urination. Family history and social history are noncontributory. - History of Current Complaint Chief Complaint: EDAbdPain Stated Complaint: RT SIDE ABD PAIN PER PT Time Seen by Provider: 06/26/19 18:37 Hx Obtained From: Patient Hx Last Menstrual Period: 06/25/19 Onset/Duration: Gradual Onset Timing: Constant Severity Initially: Moderate Severity Currently: Moderate Pain Intensity: 7 Pain Scale Used: 0-10 Numeric Location: Discrete At: RLQ Radiates: No Character: Cramping Aggravating Factor(s): Movement Alleviating Factor(s): Position Associated Signs and Symptoms: Positive: Nausea. Negative: Diaphoresis, Fever, Chest Pain, Back Pain, Urinary Symptoms, Vaginal Bleeding, Vaginal Discharge, Diarrhea Allergies/Adverse Reactions: Allergies Allergy/AdvReac Type Severity Reaction Status Date / Time No Known Allergies Allergy Verified 06/26/19 16:51 Home Medications: Home Medications Fexofenadine (NF) [Gosia 180 (NF)] 180 mg PO DAILY 06/26/19 [History Confirmed 06/26/19] Methylphenidate ER (NF) [Concerta (NF)] 54 mg PO DAILY 06/26/19 [History Confirmed 06/26/19] Montelukast Sodium TAB* [Singulair TAB*] 10 mg PO DAILY 06/26/19 [History Confirmed 06/26/19] Venlafaxine EXT RELEASE CAP* [Effexor Xr CAP*] 75 mg PO DAILY 06/26/19 [History Confirmed 06/26/19] Venlafaxine EXT RELEASE CAP* [Effexor Xr CAP*] 150 mg PO DAILY 06/26/19 [ History Confirmed 06/26/19] PMH/Surg Hx/FS Hx/Imm Hx Endocrine/Hematology History: Denies: Hx Diabetes, Hx Thyroid Disease Cardiovascular History: Denies: Hx Hypertension Respiratory History: Denies: Hx Asthma, Hx Chronic Obstructive Pulmonary Disease (COPD) GI History: Denies: Hx Ulcer History: Reports: Other Problems/Disorders - ovarian cyst Psychiatric History: Reports: Hx Anxiety, Hx Depression, Hx Post Traumatic Stress Disorder Denies: Hx Eating Disorder - Surgical History Surgery Procedure, Year, and Place: wisdom tooth removal Infectious Disease History: No Infectious Disease History: Denies: Hx Hepatitis, Hx Human Immunodeficiency Virus (HIV), Traveled Outside the [place] in Last 30 Days - Family History Known Family History: Positive: Other - suicide attempt in father (not completed ); mother healthy and we.., Non-Contributory Family History: Father: bipolar disorder - Social History Alcohol Use: Occasionally Hx Substance Use: No Substance Use Type: Reports: Marijuana Hx Tobacco Use: No Smoking Status (MU): Never Smoked Tobacco Review of Systems Constitutional: Negative Eyes: Negative ENT: Negative Cardiovascular: Negative Respiratory: Negative Positive: Abdominal Pain, Nausea. Negative: Vomiting, Diarrhea Genitourinary: Negative Musculoskeletal: Negative Skin: Negative Neurological: Negative Psychological: Normal All Other Systems Reviewed And Are Negative: Yes Physical Exam - Summary Physical Exam Summary: Inspection the abdomen reveals no ecchymosis or masses. Auscultation reveals normoactive bowel sounds. Palpation reveals tenderness right lower quadrant however there is no guarding or rigidity. Negative Rovsing, McBurney sign. Positive psoas, obturator sign Triage Information Reviewed: Yes Vital Signs On Initial Exam: Initial Vitals Temp Pulse Resp BP Pulse Ox 97.7 F 87 16 147/86 98 06/26/19 16:49 06/26/19 16:49 06/26/19 16:49 06/26/19 16:49 06/26/19 16:49 Vital Signs Reviewed: Yes Appearance: Positive: Well-Appearing, No Pain Distress, Well-Nourished Skin: Positive: Warm, Skin Color Reflects Adequate Perfusion Eyes: Positive: EOMI, JEFF ENT: Positive: Hearing grossly normal Respiratory/Lung Sounds: Positive: Clear to Auscultation, Breath Sounds Present Cardiovascular: Positive: RRR, S1, S2 Abdomen Description: Positive: Soft. Negative: Distended, Guarding Bowel Sounds: Positive: Present Musculoskeletal: Positive: Strength/ROM Intact Neurological: Positive: Sensory/Motor Intact, Alert, Oriented to Person Place, Time, Normal Gait, Speech Normal Psychiatric: Positive: Normal AVPU Assessment: Alert Procedures - Sedation Patient Received Moderate/Deep Sedation with Procedure: No Diagnostics - Vital Signs Vital Signs Temp Pulse Resp BP Pulse Ox 06/26/19 16:49 97.7 F 87 16 147/86 98 - Laboratory Result Diagrams: 06/26/19 19:07 06/26/19 19:07 Lab Statement: Any lab studies that have been ordered have been reviewed, and results considered in the medical decision making process. Abdominal Pain Fem Course/Dx - Course Course Of Treatment: Patient was evaluated in the emergency department for abdominal pain. Patient seen and examined her vitals are stable and she is afebrile. Laboratory studies within normal limits with no evidence of leukocytosis or acute infectious process. CT scan of the abdomen and pelvis with contrast showed no acute pathology such as appendicitis or ovarian cysts. I'm not certain what is causing her symptoms however it is possibly due to viral origin. She is to follow-up with her primary care provider for outpatient management. - Diagnoses Differential Diagnosis: Positive: Appendicitis, Constipation, Diverticulitis, Ectopic , Ovarian Cyst, Urinary Tract Infection Provider Diagnoses: Abdominal pain Discharge ED - Sign-Out/Discharge Documenting (check all that apply): Patient Departure - Discharge Plan Condition: Stable Disposition: HOME Patient Education Materials: Acute Abdominal Pain (ED) Forms: *Work Release Referrals: July Mccracken PA [Primary Care Provider] - 3 Days Additional Instructions: You were seen in the emergency department today for abdominal pain. There is no evidence that your symptoms are due to a life-threatening or infectious process requiring intervention at this time. 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 Please return to the emergency department immediately if you develop any new or worsening symptoms. Take 600mg ibuprofen every 6 hours as needed. - Billing Disposition and Condition Condition: STABLE Disposition: Home - Attestation Statements Provider Attestation: I was available for consult. This patient was seen by the LASHAUN. The patient was not presented to, seen by, or examined by me. Rodrigo Joiner MD
[2019-06-26] MEDS ORDERED: Morphine 4 MG/ML VIAL (1 ml) 4 MG/ML VIAL IV ONE ×2 (18:54→21:02)
[2019-06-26] MEDS ORDERED: Ondansetron INJ* 2 MG/ML VIAL IV ONE (18:54)
[2019-06-26] MEDS ORDERED: Lactated Ringers 1000 ML Bag* 1,000 ML IV SCH (19:00)
[2019-06-26 19:17] LABS: ABS Eosinophils 0.1 10^3/ul (0-0.6); ABS Lymphocytes 1.6 10^3/ul (1.0-4.8); ABS Monocytes 0.6 10^3/ul (0-0.8); ABS Neutrophils 2.1 10^3/ul (1.5-7.7); Eosinophil % 3.3 %; Hematocrit 40 % (35-47); Hemoglobin 13.8 g/dL (12.0-16.0); Lymphocyte % 35.3 %; Mean Corpuscular HGB Conc 35 g/dL (31-36); Mean Corpuscular Hemoglobin 30 pg (27-31); Mean Corpuscular Volume 84 fL (80-97); Mean Platelet Volume 8.1 fL (7.4-10.4); Nucleated Red Blood Cells % 0.1; Platelet Count 245 10^3/uL (150-450); Red Blood Count 4.69 10^6 /uL (3.70-4.87); Red Cell Distribution Width 13 % (10-15); White Blood Count 4.5 10^3/uL (3.5-10.8)
[2019-06-26 19:34] LABS: ALT 29 U/L (7-52); AST 29 U/L (13-39); Albumin 4.4 g/dL (3.2-5.2); Albumin/Globulin Ratio 1.6 (1-3); Alkaline Phosphatase 73 U/L (34-104); Anion Gap 7 mmol/L (2-11); BUN/Creatinine Ratio 12.2 (8-20); Blood Urea Nitrogen 10 mg/dL (6-24); C Reactive Protein 4.94 mg/L (<8.01); CO2 Carbon Dioxide 27 mmol/L (22-32); Calcium 9.3 mg/dL (8.6-10.3); Chloride 105 mmol/L (101-111); EGFR African American 106.5 (>60); Globulin 2.8 g/dL (2-4); Glucose 89 mg/dL (70-100); Potassium 3.8 mmol/L (3.5-5.0); Sodium 139 mmol/L (135-145); Total Protein 7.2 g/dL (6.4-8.9)
[2019-06-26 19:40] LABS: HCG Pregnancy < 0.60 mIU/mL
[2019-06-26 19:48] LABS: Urine Appearance Clear; Urine Bilirubin Negative (Negative); Urine Blood Negative (Negative); Urine Color Yellow; Urine Glucose Negative (Negative); Urine Ketones Negative (Negative); Urine Nitrite Negative (Negative); Urine Protein Negative (Negative); Urine Specific Gravity 1.011 (1.010-1.030); Urine Urobilinogen Negative (Negative)
[2019-06-26] MEDS ORDERED: Iohexol 300* (CONTRAST) 10 ML SDV IV ONE (19:52)
[2019-06-26] MEDS ORDERED: Lactated Ringers 1000 ML Bag* 1,000 ML IV ONE (21:00)
[2019-06-26 22:06] VITALS: BP 128/78
--- NOTE | 2019-06-27 05:55 | ED ---
Imaging and Labs Follow Up Follow Up Type: Labs/Cultures Labs/Culture Result: vaginal culture positive for gardnerella. Patient Communication/Plan: called and left vm. patient states that no symptoms so will not treat Provider Diagnoses: Abdominal pain
== END 2019-06-26 22:04 | disposition home or self-care (01) ==
LOC: ED 16:42
DX: R10.31 Right lower quadrant pain (principal); R11.0 Nausea; Z79.899 Other long term (current) drug therapy; F41.9 Anxiety disorder, unspecified; F32.9 Major depressive disorder, single episode, unspecified
CPT/HCPCS: 36415; 74177; 80053; 81003; 83605; 83690; 84702; 85025; 86140; 96361; 96374; 96375; 96376; 99283; J2270; J2405; Q9967

== ENCOUNTER 2019-07-19 12:28 | Day surgery (SDC) | payer BC, OTHER ==
[~2019-07-19 12:28] MED LIST: Buffered Lidocaine 1% SYRIN* 1 ML/SYRINGE INTRADERM ONE; Famotidine IV* 10 MG/ML 2 ML (20 mg) IV ONE; Lactated Ringers 1000 ML Bag* 1,000 ML IV SCH
[2019-07-19] MEDS ORDERED: Famotidine IV* 10 MG/ML 2 ML (20 mg) ONE (13:02)
[2019-07-19] MEDS ORDERED: Buffered Lidocaine 1% SYRIN* 1 ML/SYRINGE INTRADERM ONE (13:02)
[2019-07-19] MEDS ORDERED: Midazolam* 1 MG/ML 5 ML VIAL (5 MG) ONE (15:14)
[2019-07-19] MEDS ORDERED: Lidocaine 2% PF * 5 ML VIAL ONE (15:14)
[2019-07-19] MEDS ORDERED: Ondansetron INJ* 2 MG/ML VIAL ONE (15:14)
[2019-07-19] MEDS ORDERED: Propofol* 10 MG/ML 20 ML BTL ONE (15:14)
[2019-07-19] MEDS ORDERED: Dexamethasone IV* 4 MG/ML 1 ML (4 MG) ONE (15:14)
[2019-07-19] MEDS ORDERED: fentaNYL* 50 MCG/ML 2 ML VIAL (100 MCG VIAL) ONE ×3 (15:14→16:43)
[2019-07-19] MEDS ORDERED: Naloxone* 0.4 MG/ML 1 ML VIAL IV PRN (15:47)
[2019-07-19] MEDS ORDERED: Ondansetron INJ* 2 MG/ML VIAL IV PRN (15:47)
[2019-07-19] MEDS: fentaNYL* 50 MCG/ML 2 ML VIAL (100 MCG VIAL) IV PRN ×2 (16:46→17:15)
[2019-07-19 18:33] VITALS: BP 135/83
--- NOTE | 2019-07-19 23:20 | OP ---
DATE OF OPERATION: 07/19/19 - SDS DATE OF : [birth year] SURGEON: Juma Thomson MD PRE-OP DIAGNOSIS: Chronic tonsillitis. POST-OP DIAGNOSIS: Chronic tonsillitis. OPERATIVE PROCEDURE: Tonsillectomy. BRIEF HISTORY: This 22-year-old with recurring tonsillitis and markedly hypertrophied tonsils elected for surgical therapy. DESCRIPTION OF PROCEDURE: The patient was taken to the operating room. General anesthetic was given. The patient was intubated. Tongue, mandible, and soft palate were retracted. Coblator was used to remove the tonsils in tonsillar plane. Once hemostasis was obtained on both sides, the patient was awakened, extubated, and sent to the recovery room in stable condition. COUNTS: Instrument and sponge counts correct. BLOOD LOSS: Minimal. [id number]/CPS #: [id number] MTDD
== END 2019-07-19 18:30 | disposition home or self-care (01) ==
LOC: OR 12:28
PROVIDERS: ATTEND Otolaryngology
DX: J35.01 Chronic tonsillitis (principal); F41.8 Other specified anxiety disorders; F90.9 Attention-deficit hyperactivity disorder, unspecified type; N83.209 Unspecified ovarian cyst, unspecified side
CPT/HCPCS: 81025; 88304; J1100; J2250; J2405; J2704; J3010

== ENCOUNTER 2019-08-07 11:53 | Emergency (ER) | payer BC ==
--- OUTSIDE RECORDS SUMMARY | 2019-08-07 11:59 | XMS REPORT | Continuity of Care Document ---
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 July Mccracken PA Onset: Posttraumatic stress disorder July Mccracken PA Onset: 09/20/2017 Social History Type Date Description Comments Sex Unknown Tobacco Use Reviewed: Denies Cigarette Use 01/03/19 ETOH Use Rarely consumes alcohol Recreational Drug Use Has Used Illegal Drugs marijuana (rare) only In The Past Tobacco Use Reviewed: Non Smoker 01/03/19 Recreational Drug Use 01/03/2019 Denies Drug Use Smoking Status Reviewed: Non Smoker 07/15/19 Exercise Type/Frequency 01/03/2019 Exercises regularly Sun Exposure Uses sunscreen Seat Belt/Car Seat Seat Belt Use - Yes Guns in Home No Smoke Alarms Yes smoke alarm Allergies, Adverse Reactions, Alerts Description No Known Drug Allergies Medications Active Medications SIG Qnty Indications Ordering Date Provider Venlafaxine HCL ER take one capsule by Unknown 07/14/2019 150mg mouth every morning Caps ER 24HR for mood, in addition to the 75mg. Fexofenadine HCL Take One Tablet By 30tabs Silcoff, 07/11/2019 180mg Mouth Every Day For Amber Liriano Tablets Allergies Venlafaxine HCL 1 by mouth daily Unknown 06/12/2017 75mg Tablets Fluticasone Propionate 2 sprays each 16gm Silcoff, 03/02/2017 nostril daily Amber Liriano 50mcg/Act Suspension Epinephrine use as directed for 2units July Mccracken, 02/14/2017 0.3mg/0.3ML anaphylactic PA Solution Auto-Inject reactions Montelukast Sodium Take One Tablet By 30tabs Geovany, 12/07/2016 10mg Mouth Every Day Amber Liriano Tablets Methylphenidate HCL ER 1 by mouth every Unknown 12/07/2016 morning for adhd 54mg Tablets ER 24HR Medications Administered in Office Medication SIG Qnty Indications Ordering Provider Date TB Intradermal Test Unknown 12/13/2018 Injection TB Intradermal Test July Mccracken PA 02/15/2017 Injection Immunizations CPT Code Status Date Vaccine Lot # [id number] Given 01/03/2019 Adacel or Boostrix, TDaP [id number] 23222 Given 02/15/2017 Influenza Virus Vaccine, Quadrivalent, Split, [id number] Preservative Free 03479 Given 03/25/2015 Influenza Virus Vaccine, Quadrivalent, Split, Preservative Free 21132 Given 03/24/2014 Menactra Menningitis Vaccine 82175 Given 03/24/2014 flu mist - live influenza virus vaccine for intranasal use 24413 Given 03/21/2013 flu mist - live influenza virus vaccine for intranasal use 40966 Given 03/21/2012 flu mist - live influenza virus vaccine for intranasal use 83353 Given 03/21/2012 Hep A, Ped/Adolscent, 2 Dose 49872 Given 03/21/2011 flu mist - live influenza virus vaccine for intranasal use 35813 Given 03/21/2011 Hep A, Ped/Adolscent, 2 Dose 79210 Given 04/08/2010 Gardasil HPV vaccine 96038 Given 04/08/2010 Flu, Split Virus 3Yrs 09270 Given 06/03/2009 Gardasil HPV vaccine 85895 Given 03/31/2009 Menactra Menningitis Vaccine 32849 Given 03/31/2009 Varicella (Chicken Pox) Immunization 85834 Given 03/31/2009 flu mist - live influenza virus vaccine for intranasal use 59983 Given 03/31/2009 Gardasil HPV vaccine 64940 Given 06/24/2008 flu mist - live influenza virus vaccine for intranasal use 04959 Given 02/26/2008 Adacel or Boostrix, TDaP 88448 Given 04/13/2006 flu mist - live influenza virus vaccine for intranasal use 76367 Given 05/11/2005 Flu, Split Virus 3Yrs 52351 Given 05/29/2003 Flu, Split Virus 3Yrs 85930 Given 10/22/2002 Varicella (Chicken Pox) Immunization 40424 Given 10/22/2002 Poliomyelitis Immunization 70881 Given 10/22/2002 MMR Virus Immunization 23019 Given 10/22/2002 Dtap Immunization (Tripedia) (Infanrix) 29811 Given 03/31/1999 Oral Poliovirus Immunization 11687 Given 03/31/1999 Dtap Immunization (Tripedia) (Infanrix) 14029 Given 10/02/1998 MMR Virus Immunization 50046 Given 03/17/1998 3 dose Hib (PRP-Omp) 65015 Given 03/17/1998 DTP Immunization 23701 Given 03/17/1998 Hep B Immunization, Ped/Adolescent To 11 Yrs 22406 Given 01/13/1998 Poliomyelitis Immunization 85723 Given 01/13/1998 Dtap Immunization (Tripedia) (Infanrix) 38412 Given 01/13/1998 3 dose Hib (PRP-Omp) 21126 Given 1997 Poliomyelitis Immunization 21417 Given 1997 Dtap Immunization (Tripedia) (Infanrix) 04986 Given 1997 3 dose Hib (PRP-Omp) 27068 Given 1997 Hep B Immunization, Ped/Adolescent To 11 Yrs 55775 Given 1997 Hep B Immunization, Ped/Adolescent To 11 Yrs Vital Signs Date Vital Result Comment 07/15/2019 1:18pm BP Systolic 122 mmHg BP Diastolic 82 mmHg Height 69.5 inches 5'9.50" Weight 150.00 lb BMI (Body Mass Index) 21.8 kg/m2 01/03/2019 9:59am BP Systolic 132 mmHg BP Diastolic 72 mmHg Heart Rate 70 /min Height 69.50 inches 5'9.50" Weight 155.50 lb BMI (Body Mass Index) 22.6 kg/m2 Results Test Acquired Date Facility Test Result H/L Range Note Laboratory test 06/26/2019 [facility] Lactic Acid 0.7 mmol/L Normal 0.5-2.0 1 finding [phone] Comp Metabolic 06/26/2019 [facility] Sodium 139 mmol/L Normal 135- 145 Panel [phone] Potassium 3.8 mmol/L Normal 3.5-5.0 Chloride 105 mmol/L Normal 101-111 Co2 Carbon Dioxide 27 mmol/L Normal 22-32 Anion Gap 7 mmol/L Normal 2-11 Glucose 89 mg/dL Normal 70-100 Blood Urea Nitrogen 10 mg/dL Normal 6-24 Creatinine 0.82 mg/dL Normal 0.51-0.95 BUN/Creatinine Ratio 12.2 Normal 8-20 Calcium 9.3 mg/dL Normal 8.6-10.3 Total Protein 7.2 g/dL Normal 6.4-8.9 Albumin 4.4 g/dL Normal 3.2-5.2 Globulin 2.8 g/dL Normal 2-4 Albumin/Globulin Ratio 1.6 Normal 1-3 Total Bilirubin 0.60 mg/dL Normal 0.2-1.0 Alkaline Phosphatase 73 U/L Normal 34-104 Alt 29 U/L Normal 7-52 Ast 29 U/L Normal 13-39 Egfr Non- 88.0 >60 Egfr 106.5 >60 2 Laboratory test finding 06/26/2019 [facility] Lipase 35 U/L Normal 11.0-82.0 [phone] C Reactive Protein 4.94 mg/L Normal <8.01 HCG < 0.60 mIU/mL 3 CBC Auto Diff 06/26/2019 [facility] White Blood 4.5 10^3/uL Normal 3.5-10.8 [phone] Count Red Blood Count 4.69 10^6/uL Normal 3.70-4.87 Hemoglobin 13.8 g/dL Normal 12.0-16.0 Hematocrit 40 % Normal 35-47 Mean Corpuscular Volume 84 fL Normal 80-97 Mean Corpuscular Hemoglobin 30 pg Normal 27-31 Mean Corpuscular HGB Conc 35 g/dL Normal 31-36 Red Cell Distribution Width 13 % Normal 10-15 Platelet Count 245 10^3/uL Normal 150-450 Mean Platelet Volume 8.1 fL Normal 7.4-10.4 Abs Neutrophils 2.1 10^3/uL Normal 1.5-7.7 Abs Lymphocytes 1.6 10^3/uL Normal 1.0-4.8 Abs Monocytes 0.6 10^3/uL Normal 0-0.8 Abs Eosinophils 0.1 10^3/uL Normal 0-0.6 Abs Basophils 0.0 10^3/uL Normal 0-0.2 Abs Nucleated RBC 0.0 10^3/uL Granulocyte % 47.0 % Lymphocyte % 35.3 % Monocyte % 13.8 % Eosinophil % 3.3 % Basophil % 0.6 % Nucleated Red Blood Cells % 0.1 Urinalysis Profile 06/26/2019 [facility] Urine Color Yellow [phone] Urine Appearance Clear Urine Specific [place] 1.011 Normal 1.010-1.030 Urine pH 7.0 Normal 5-9 Urine Urobilinogen Negative Negative Urine Ketones Negative Negative Urine Protein Negative Negative Urine Leukocytes Negative Negative Urine Blood Negative Negative Urine Nitrite Negative Negative Urine Bilirubin Negative Negative Urine Glucose Negative Negative Urine Culture And 06/26/2019 [facility] Urine SEE RESULT 4, 5 Sensitivities [phone] Culture BELOW Poc Urinalysis 06/26/2019 [facility] Poc Glucose, NEGATIVE Negative [phone] Urine Poc Bilirubin, Urine NEGATIVE Negative Poc Ketone, Urine NEGATIVE Negative Poc Specific [place], Urine 1.020 Normal 1.010-1.030 Poc Blood, Urine 1+ Abnormal Negative 6 Poc pH, Urine 6.0 Normal 5-9 Poc Protein, Urine NEGATIVE Negative Poc Urobilinogen, Urine 0.2 Negative Poc Nitrite, Urine NEGATIVE Negative Poc Leukocytes, Urine 1+ Abnormal Negative Poc Color, Urine LIGHT YELLOW Poc Clarity, Urine CLOUDY CBC Auto Diff 06/25/2019 [facility] White Blood 6.9 10^3/uL Normal 3.5-10.8 [phone] Count Red Blood Count 4.43 10^6/uL Normal 3.70-4.87 Hemoglobin 12.8 g/dL Normal 12.0-16.0 Hematocrit 37 % Normal 35-47 Mean Corpuscular Volume 84 fL Normal 80-97 Mean Corpuscular Hemoglobin 29 pg Normal 27-31 Mean Corpuscular HGB Conc 34 g/dL Normal 31-36 Red Cell Distribution Width 13 % Normal 10-15 Platelet Count 249 10^3/uL Normal 150-450 Mean Platelet Volume 8.3 fL Normal 7.4-10.4 Abs Neutrophils 4.2 10^3/uL Normal 1.5-7.7 Abs Lymphocytes 1.7 10^3/uL Normal 1.0-4.8 Abs Monocytes 0.8 10^3/uL Normal 0-0.8 Abs Eosinophils 0.2 10^3/uL Normal 0-0.6 Abs Basophils 0.0 10^3/uL Normal 0-0.2 Abs Nucleated RBC 0.0 10^3/uL Granulocyte % 61.4 % Lymphocyte % 24.6 % Monocyte % 11.2 % Eosinophil % 2.3 % Basophil % 0.5 % Nucleated Red Blood Cells % 0.0 Urinalysis Profile 06/25/2019 [facility] Urine Color Yellow [phone] Urine Appearance Cloudy Urine Specific [place] 1.012 Normal 1.010-1.030 Urine pH 7.0 Normal 5-9 Urine Urobilinogen Negative Negative Urine Ketones Negative Negative Urine Protein Negative Negative Urine Leukocytes Negative Negative Urine Blood 3+ Abnormal Negative Urine Nitrite Negative Negative Urine Bilirubin Negative Negative Urine Glucose Negative Negative Urine White Blood Cell Absent Absent Urine Red Blood Cell Trace(0-2/hpf) Absent Urine Bacteria Absent Absent Urine Squamous Epithelial Cell Present Abnormal Absent Urine Amorphous Crystals Present Abnormal Absent Comp Metabolic Panel 06/25/2019 [facility] Sodium 139 mmol/L Normal 135-145 [phone] Potassium 3.6 mmol/L Normal 3.5-5.0 Chloride 105 mmol/L Normal 101-111 Co2 Carbon Dioxide 27 mmol/L Normal 22-32 Anion Gap 7 mmol/L Normal 2-11 Glucose 99 mg/dL Normal 70-100 Blood Urea Nitrogen 12 mg/dL Normal 6-24 Creatinine 0.83 mg/dL Normal 0.51-0.95 BUN/Creatinine Ratio 14.5 Normal 8-20 Calcium 8.9 mg/dL Normal 8.6-10.3 Total Protein 6.5 g/dL Normal 6.4-8.9 Albumin 4.2 g/dL Normal 3.2-5.2 Globulin 2.3 g/dL Normal 2-4 Albumin/Globulin Ratio 1.8 Normal 1-3 Total Bilirubin 0.50 mg/dL Normal 0.2-1.0 Alkaline Phosphatase 68 U/L Normal 34-104 Alt 22 U/L Normal 7-52 Ast 24 U/L Normal 13-39 Egfr Non- 86.8 >60 Egfr 105.0 >60 7 Laboratory test finding 06/25/2019 [facility] HCG < 0.60 mIU/ mL 8 [phone] Gardnerella/Yeast: Vaginal Dna SEE RESULT BELOW 9 GC/Chlamydia Amplified 06/25/2019 [facility] GCCHL Disclaimer (SEE NOTE ) 10 Rna [phone] Chlamydia trachomatis Kasia Negative Negative Neisseria gonorrhoeae (GC) Kasia Negative Negative Laboratory test 05/20/2019 [facility] Culture Throat SEE RESULT 11 finding [phone] BELOW Laboratory test 05/20/2019 [facility] Rapid Strep Negative Negative 12 finding [phone] Molecular 1 [facility] Severe Sepsis and Septic Shock Management Bundle Measure requires all lactic acids initially measuring >2.0 mmol/L be repeated. 2 Because ethnic data is not always readily available, this report includes an eGFR for both -Americans and non- Americans. The National Kidney Disease Education Program (NKDEP) does not endorse the use of the MDRD equation for patients that are not between the ages of 18 and 70, are , have extremes of body size, muscle mass, or nutritional status, or are non- or non-. According to the National Kidney Foundation, irrespective of diagnosis, the stage of the disease is based on the level of kidney function: Stage Description GFR(mL/min/1.73 m(2)) 1 Kidney damage with normal or decreased GFR 90 2 Kidney damage with mild decrease in GFR 60-89 3 Moderate decrease in GFR 30-59 4 Severe decrease in GFR 15-29 5 Kidney failure <15 (or dialysis) 3 <5.0 Negative 5.0 - 25.0 Indeterminate (Repeat testing recommended after 72 hours) >25.0 Positive Perimenopausal women can display HCG levels of up to 20 mIU/mL 4 [id number] 5 SEE RESULT BELOW Name: MARKY ESPINOZA : [address]: Les Farias MD Acct: [id number] Unit: [id number] AGE: 23 Location: [facility] Re06/26/19 SEX: F Status: DEP ER SPEC: [id number] DARRIUS: 06/26/[address] [facility] [address]: Les Farias MD REQ: [id number] RECD: 06/26/19 STATUS: DESIRAE PORTILLO DR: [employer] July Mccracken RPA-C _ SOURCE: URINE SPDESC: ORDERED: Urine Culture COMMENTS: [id number] Procedure Result Reported Site Urine Culture Final 06/27/19- 1446 ML No Growth (<1,000 CFU/mL) * ML - Main Lab . END OF REPORT DEPARTMENT OF PATHOLOGY, [address] [place] [address] Андрей Obrien M.D. Director [facility] # [id number] 6 Slackline Operator: [id number] 7 Because ethnic data is not always readily available, this report includes an eGFR for both -Americans and non- Americans. The National Kidney Disease Education Program (NKDEP) does not endorse the use of the MDRD equation for patients that are not between the ages of 18 and 70, are , have extremes of body size, muscle mass, or nutritional status, or are non- or non-. According to the National Kidney Foundation, irrespective of diagnosis, the stage of the disease is based on the level of kidney function: Stage Description GFR(mL/min/1.73 m(2)) 1 Kidney damage with normal or decreased GFR 90 2 Kidney damage with mild decrease in GFR 60-89 3 Moderate decrease in GFR 30-59 4 Severe decrease in GFR 15-29 5 Kidney failure <15 (or dialysis) 8 <5.0 Negative 5.0 - 25.0 Indeterminate (Repeat testing recommended after 72 hours) >25.0 Positive Perimenopausal women can display HCG levels of up to 20 mIU/mL 9 SEE RESULT BELOW Name: MARKY ESPINOZA : [address]: Rodrigo Joiner MD Acct: [id number] Unit: [id number] AGE: 23 Location: ED Re06/25/19 SEX: F Status: DEP ER SPEC: [id number] DARRIUS: 06/25/[address] [facility] [address]: Rodrigo Joiner MD REQ: [id number] RECD: 06/25/19 STATUS: COMP [facility] DR: July Mccracken RPA-C _ SOURCE: VAGINAL SPDESC: ORDERED: Yissel,Yeast DNA COMMENTS: Would you like to order Trichomonas Vaginalis RNA testing? Y QUERIES: Would you like to order Trichomonas Vaginalis testing? No Procedure Result Reported Site Gardnerella/Yeast: Vaginal DNA Final 06/26/19- 1220 ML Organism 1 Negative Stephanie Organism 2 POSITIVE GARDNERELLA The presence of G. vaginalis, although suggestive, is not diagnostic for bacterial vaginosis. Results should be interpreted in conjuction with other clinical and laboratory data available. Women with vaginal discharge should be evaluated for risk factors of cervicitis and pelvic inflammatory disease, toxic shock syndrome (S.aureus), and if present, evaluated for organisms not included in this assay such as N. gonorrhoeae, C. trachomatis, Mobiluncus, Mycoplasma and/or Prevotella. Mixed infections may occur. The performance of this test on patient specimens collected during or immediately after antimicrobial therapy is unknown. The presence or absence of Stephanie species, or G. vaginalis cannot be used as a test for therapeutic success or failure. CONTINUED ON NEXT PAGE DEPARTMENT OF PATHOLOGY, [address] [place] [address] Андрей Obrien M.D. Director [facility] # [id number] Specimen: [id number] Collected: 06/25/19 Received: 06/25/19 (Continued) Procedure Result Reported Site Gardnerella/Yeast: Vaginal DNA Final (continued) 06/26/19- 1220 * ML - Main Lab . END OF REPORT DEPARTMENT OF PATHOLOGY, [address] [place] [address] Андрей Obrien M.D. Director [facility] # [id number] 10 As with all diagnostic procedures, the laboratory results obtained should be used in conjunction with other clinical information available to the physician, including confirmation by another method, as applicable. 11 SEE RESULT BELOW Name: MARKY ESPINOZA : [address]: Carmel Rush MD Acct: [id number] Unit: [id number] AGE: 23 Location: [facility] Re05/20/19 SEX: F Status: DEP ER SPEC: [id number] DARRIUS: 05/20/19-[address] [facility] [address]: Tammy MENON REQ: [id number] RECD: 05/20/19 STATUS:DESIRAE PORTILLO DR: July Mccracken RPA-Gail Rush MD _ SOURCE: THROAT SPDESC: ORDERED: Throat Culture Procedure Result Reported Site Throat Culture Final 05/22/19- 1106 ML Organism 1 NORMAL JOSE G Quantity 3+ Throat cultures are clinically indicated to detect the presence of group A strep, arcanobacterium and yeast. In certain cases, predominating organisms will be reported. * ML - Main Lab . END OF REPORT DEPARTMENT OF PATHOLOGY, [address] [place] [address] Андрей Obrien M.D. Director [facility] # [id number] 12 Slackline Operator: [id number] Suboptimal collection technique may reduce sensitivity of test. Refer to the [facility] Test Catalog for collection information: [email or web address] As with all diagnostic procedures, the laboratory results obtained should be used in conjunction with other clinical information available to the physician, including confirmation by another method, as applicable. Procedures Description No Information Available Medical Devices Description No Information Available Encounters Description No Information Available Assessments Date Code Description Provider 07/15/2019 Z01.818 Encounter for other preprocedural examination Afsaneh Sharpe MD 07/15/2019 Z68.21 Body mass index (BMI) 21.0-21.9, adult Afsaneh Sharpe MD Plan of Treatment Future Appointment(s):01/08/2020 9:40 am - July Mccracken PA at [id number] - July Mccracken, PAZ00.00 Encounter for general adult medical examination without abnoComments:23 year old female. Screening updated.J30.9 Allergic rhinitis, unspecifiedComments:Seeing supervisor electric - will be getting allergy testing done, then starting allergy shots.J35.1 Hypertrophy of tonsilsComments:Seeing ENT for sleep study and/or possible tonsillectomy.R06.83 SnoringComments:See #3F43.23 Adjustment disorder with mixed anxiety and depressed moodComments:Anxiety/depression/PTSD, sx well controlled w current meds. Monitor.F90.0 Attention-deficit hyperactivity disorder, predominantly inatComments:Doing well on current meds, continue same.Z23 Encounter for immunizationComments:Tdap given today.Z41.8 Encounter for other procedures for purposes other than hommhC28.22 Body mass index (BMI) 22.0-22.9, adult Functional Status Description No Information Available Mental Status Description No Information Available Referrals Description No Information Available
[2019-08-07 13:26] VITALS: BP 130/83
--- NOTE | 2019-08-07 13:48 | UC ---
Complaint Female HPI - HPI Summary HPI Summary: 23-year-old Sammy presenting with possible UTI after she states she was [facility] and informed her that her urine also tested positive for possible UTI. Patient states she doesn't have any pain with urination but she does notice a foul odor and some minor abdominal discomfort. Denies flank pain. Denies nausea and vomiting. Denies fever and chills. Patient states she does get recurrent UTIs and that she has been suspicious of one over the past few days based on symptoms. - History Of Current Complaint Chief Complaint: UCGU Stated Complaint: URINARY ISSUE Hx Obtained From: Patient Hx Last Menstrual Period: 08/02/2019 pt has IUD Pain Intensity: 2 Pain Scale Used: 0-10 Numeric - Allergies/Home Medications Allergies/Adverse Reactions: Allergies Allergy/AdvReac Type Severity Reaction Status Date / Time No Known Allergies Allergy Verified 08/07/19 13:16 PMH/Surg Hx/FS Hx/Imm Hx - Surgical History Surgical History: Yes Surgery Procedure, Year, and Place: wisdom tooth removal. tonsil removal 2019 - Family History Known Family History: Positive: Other - suicide attempt in father (not completed ); mother healthy and we.., Non-Contributory Family History: Father: bipolar disorder - Social History Alcohol Use: Rare Substance Use Type: None Smoking Status (MU): Never Smoked Tobacco - Immunization History Most Recent Tetanus Shot: UTD Review of Systems All Other Systems Reviewed And Are Negative: Yes Constitutional: Positive: Negative. Negative: Fever, Chills Respiratory: Positive: Negative Cardiovascular: Positive: Negative Gastrointestinal: Positive: Negative. Negative: Vomiting, Nausea Genitourinary: Positive: Other - Malodorous urine. Negative: Dysuria, Hematuria , Frequency, Urgency, Vaginal/Penile Discharge Musculoskeletal: Negative: Myalgia Neurological: Positive: Negative Physical Exam - Summary Physical Exam Summary: Vital Signs Reviewed: Yes A+Ox3, no distress Eyes: Conjunctiva Clear ENT: Hearing grossly normal Neck: Positive: Supple Respiratory: Positive: No respiratory distress, No accessory muscle use Cardiovascular: RRR nl s1, s2 no m/r Abd: soft + BS nt/nd no guarding, no distension, -CVA tenderness Musculoskeletal Exam: MAYORGA x 4 without difficulty Neurological: Positive: Alert Psychological: Positive: age appropriate behavior Skin: Positive: no rash, no ecchymosis Vital Signs: Initial Vital Signs Temp 99.3 F 08/07/19 13:20 Pulse 84 08/07/19 13:20 Resp 17 08/07/19 13:20 BP 130/83 08/07/19 13:20 Pulse Ox 100 08/07/19 13:20 Lab Results 08/07/19 Range/Units 13:45 POC Urine Color Yellow POC Urine Clarity Slightly cloudy POC Urine pH 6.5 (5-9) POC Ur Specif Adrian 1.020 (1.010-1.030) POC Urine Protein Negative (Negative) POC Ur Glucose (UA) Negative (Negative) POC Urine Ketones Negative (Negative) POC Urine Blood Negative (Negative) POC Urine Nitrite Positive (Negative) POC Urine Bilirubin Negative (Negative) POC Urine Urobilinogen 0.2 (Negative) POC U Leukocyte Esteras 1+ A (Negative) Complaint Female Dx - Course Course Of Treatment: UA positive for 1+ leuks. I treated patient with Macrobid for UTI symptoms. Instructed to continue with increasing fluids and to follow up with PCP for evaluation of recurrent UTIs. Instructed to go to ED with any new or worsening symptoms. Patient voiced understanding and agreed with the treatment plan. - Differential Dx/Diagnosis Provider Diagnosis: UTI (urinary tract infection) Discharge ED - Sign-Out/Discharge Documenting (check all that apply): Patient Departure All imaging exams completed and their final reports reviewed: No Studies - Discharge Plan Condition: Stable Disposition: HOME Prescriptions: Nitrofurantoin Monohyd/M-Cryst [Macrobid 100 mg Capsule] 100 mg PO BID #10 cap Patient Education Materials: Urinary Tract Infection in Women (ED) Referrals: July Mccracken PA [Primary Care Provider] - 2 Weeks Additional Instructions: As discussed, take Macrobid for treatment of your UTI. Increase your fluid intake. Follow up with your PCP for evaluation of recurrent UTIs. Go to emergency room with any new or worsening symptoms. - Billing Disposition and Condition Condition: STABLE Disposition: Home
--- NOTE | 2019-08-09 11:59 | UC ---
- Progress Note Progress Note: Urine prelim cx + E coli. Taking nitrofurantoin. Sens still pending. Course/Dx - Diagnoses Provider Diagnoses: UTI (urinary tract infection) Discharge ED - Sign-Out/Discharge Documenting (check all that apply): Post-Discharge Follow Up All imaging exams completed and their final reports reviewed: No Studies - Discharge Plan Condition: Stable Disposition: HOME Prescriptions: Nitrofurantoin Monohyd/M-Cryst [Macrobid 100 mg Capsule] 100 mg PO BID #10 cap Patient Education Materials: Urinary Tract Infection in Women (ED) Referrals: July Mccracken PA [Primary Care Provider] - 2 Weeks Additional Instructions: As discussed, take Macrobid for treatment of your UTI. Increase your fluid intake. Follow up with your PCP for evaluation of recurrent UTIs. Go to emergency room with any new or worsening symptoms. - Billing Disposition and Condition Condition: STABLE Disposition: Home
== END 2019-08-07 14:13 | disposition home or self-care (01) ==
LOC: UCEAST 11:53
DX: N39.0 Urinary tract infection, site not specified (principal)
CPT/HCPCS: 81003; 87077; 87086; 87186; 99212; G0463

== ENCOUNTER 2019-08-09 16:37 | Emergency (ER) | payer BC ==
[2019-08-09 16:54] VITALS: BP 136/81
--- NOTE | 2019-08-09 18:12 | UC ---
Back Pain HPI - HPI Summary HPI Summary: 23 year old female with no PMH presents for evaluation of back pain after being seen by chiropractor and taken out of school clinicals. 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 She states the beginning of july while filling her wood stove she pulled a back muscle. no trauma, numbness, tingling, loss of B/b function. She was seen by her chiropractor who took her out for a week, but also had tonsils removed that same week. Needs note to return to work without restrictions, unable to follow up with dr due to insurance change. Denies back pain currently, no limitations, no numbness, tingling. No pain. - History of Current Complaint Chief Complaint: UCBackPain Stated Complaint: NEEDS CLEARANCE TO RETURN TO WORK Time Seen by Provider: 08/09/19 17:49 Hx Obtained From: Patient Hx Last Menstrual Period: 07/29/19 ?: No Severity Currently: None Pain Intensity: 0 Pain Scale Used: 0-10 Numeric Back Pain: Is Discrete @ - lower back stain Character: Unable to Describe - no pain currently Aggravating Factor(s): Other - none Alleviating Factor(s): Other - none Associated Signs And Symptoms: Negative: Bruising, Fever, Weakness, Numbness, Abdominal Pain, Flank Pain, Bladder Incontinence, Bowel Incontinence, Weight Loss, Pain with Weight Bearing - Allergies/Home Medications Allergies/Adverse Reactions: Allergies Allergy/AdvReac Type Severity Reaction Status Date / Time No Known Allergies Allergy Verified 08/07/19 13:16 PMH/Surg Hx/FS Hx/Imm Hx Previously Healthy: Yes - Surgical History Surgical History: Yes Surgery Procedure, Year, and Place: wisdom tooth removal. tonsil removal 2019 - Family History Known Family History: Positive: Other - suicide attempt in father (not completed ); mother healthy and we.., Non-Contributory Family History: Father: bipolar disorder - Social History Occupation: Employed Full-time, Student Alcohol Use: Rare Substance Use Type: None Smoking Status (MU): Never Smoked Tobacco - Immunization History Most Recent Tetanus Shot: UTD Review of Systems All Other Systems Reviewed And Are Negative: Yes Constitutional: Positive: Negative Skin: Positive: Negative Eyes: Positive: Negative ENT: Positive: Negative Motor: Positive: Negative Neurovascular: Positive: Negative Musculoskeletal: Positive: Negative Neurological: Positive: Negative Psychological: Positive: Negative Is Patient Immunocompromised?: No Physical Exam Triage Information Reviewed: Yes Appearance: Well-Appearing, No Pain Distress, Well-Nourished Vital Signs: Initial Vital Signs Temp 99 F 08/09/19 16:49 Pulse 89 08/09/19 16:49 Resp 12 08/09/19 16:49 BP 136/81 08/09/19 16:49 Pulse Ox 100 08/09/19 16:49 Vital Signs Reviewed: Yes Eyes: Positive: Conjunctiva Clear ENT: Positive: Hearing grossly normal Neck: Positive: Supple Musculoskeletal Exam: Normal Musculoskeletal: Positive: Strength Intact, ROM Intact, No Edema, Other: - no TTP over sacral, lumbar, thoracic spine. no SI joint tenderness. full AROM without pain. patellar reflexes 2+ b/l, able to walk on toes, heels, heel to toe, stand on one foot b/l, heel up mojica b/l without difficulty or pain. neg rhomberg. SEnesation intact to light tough b/l LEs. PT pulses 2+ b/l. neg homans. Neurological Exam: Normal Neurological: Positive: Alert Psychological Exam: Normal Psychological: Positive: Normal Response To Family Skin Exam: Normal Back Pain Course/Dx - Course Course Of Treatment: lower back strain, revolved, atraumatic - Practice careful lifting/ pulling at work - Motrin/ Alleve as needed for pain - Stretching/ strengthening exercises as shown - Work release to full duties given - Return with increased pain, swelling, numbness/ tingling/ weakness, loss of bowel/ bladder function - Differential Dx/Diagnosis Differential Diagnosis/HQI/PQRI: Strain, Sprain Provider Diagnosis: Normal exam Discharge ED - Sign-Out/Discharge Documenting (check all that apply): Patient Departure All imaging exams completed and their final reports reviewed: No Studies - Discharge Plan Condition: Good Disposition: HOME Patient Education Materials: Low Back Strain (ED), Core Strengthening Exercises (GEN), Lower Back Exercises (ED) Forms: *School Release, *Work Release Referrals: July Mccracken PA [Primary Care Provider] - Additional Instructions: - Practice careful lifting/ pulling at work - Motrin/ Alleve as needed for pain - Stretching/ strengthening exercises as shown - Work release to full duties given - Return with increased pain, swelling, numbness/ tingling/ weakness, loss of bowel/ bladder function - Billing Disposition and Condition Condition: GOOD Disposition: Home - Attestation Statements Provider Attestation: This patient was not seen by me. I was available for consult. Chart reviewed. GUNJAN
== END 2019-08-09 18:30 | disposition home or self-care (01) ==
LOC: UCEAST 16:37
DX: Z02.79 Encounter for issue of other medical certificate (principal); Z87.39 Personal history of other diseases of the musculoskeletal system and connective tissue
CPT/HCPCS: 99211; G0463

== ENCOUNTER 2019-11-23 11:41 | Inpatient (IN) ==
[2019-11-23 12:37] LABS: Urine Appearance Cloudy; Urine Bilirubin Negative (Negative); Urine Blood Negative (Negative); Urine Color Yellow; Urine Glucose Negative (Negative); Urine Ketones Negative (Negative); Urine Nitrite Negative (Negative); Urine Protein Negative (Negative); Urine Specific Gravity 1.012 (1.010-1.030); Urine Urobilinogen Negative (Negative)
[2019-11-23 12:39] LABS: ABS Eosinophils 0.2 10^3/ul (0-0.6); ABS Lymphocytes 1.5 10^3/ul (1.0-4.8); ABS Monocytes 0.5 10^3/ul (0-0.8); Eosinophil % 3.3 %; Hematocrit 42 % (35-47); Hemoglobin 14.7 g/dL (12.0-16.0); Lymphocyte % 24.6 %; Mean Corpuscular HGB Conc 35 g/dL (31-36); Mean Corpuscular Hemoglobin 30 pg (27-31); Mean Corpuscular Volume 85 fL (80-97); Mean Platelet Volume 8.6 fL (7.4-10.4); Nucleated Red Blood Cells % 0.1; Platelet Count 260 10^3/uL (150-450); Red Blood Count 4.96 10^6 /uL (3.70-4.87); Red Cell Distribution Width 13 % (10-15); White Blood Count 5.9 10^3/uL (3.5-10.8)
[2019-11-23 12:46] LABS: Urine Bacteria Absent (Absent); Urine Red Blood Cell Trace(0-2/hpf) (Absent); Urine Squamous Epithelial Cell Present (Absent); Urine White Blood Cell Trace(0-5/hpf) (Absent)
[2019-11-23 12:47] LABS: Urine Benzodiazepine Screen None Detected (None Detect); Urine Opiates Screen None Detected (None Detect)
[2019-11-23 12:56] LABS: ALT 11 U/L (7-52); AST 15 U/L (13-39); Albumin 4.5 g/dL (3.2-5.2); Albumin/Globulin Ratio 1.9 (1-3); Alkaline Phosphatase 70 U/L (34-104); Anion Gap 7 mmol/L (2-11); BUN/Creatinine Ratio 9.5 (8-20); Blood Urea Nitrogen 8 mg/dL (6-24); CO2 Carbon Dioxide 25 mmol/L (22-32); Calcium 9.2 mg/dL (8.6-10.3); Chloride 103 mmol/L (101-111); EGFR African American 102.6 (>60); EGFR Non-African American 84.8 (>60); Globulin 2.4 g/dL (2-4); Glucose 88 mg/dL (70-100); Potassium 3.6 mmol/L (3.5-5.0); Sodium 135 mmol/L (135-145); Total Protein 6.9 g/dL (6.4-8.9)
[2019-11-23 13:02] LABS: HCG Pregnancy < 0.60 mIU/mL
[2019-11-23 13:49] LABS: Acetaminophen < 15 mcg/mL; Alcohol, S < 10 mg/dL (<10); Salicylate < 2.50 mg/dL (<30)
[2019-11-23 14:04] LABS: TSH (Thyroid Stimulating Horm) 0.54 mcIU/mL (0.34-5.60)
[2019-11-23] MEDS ORDERED: Al Hydrox/Mg Hydrox/Simet LIQ 30 ML UDC PO PRN (16:30)
[2019-11-24] MEDS: Vitamin THERAPEUTIC TAB PO SCH (07:44)
[2019-11-24] MEDS: Venlafaxine XR 75 mg PO SCH (09:21)
[2019-11-25] MEDS: Venlafaxine XR 75 mg PO SCH (09:18)
[2019-11-25] MEDS: Vitamin THERAPEUTIC TAB PO SCH (09:19)
[2019-11-26] MEDS: Venlafaxine XR 75 mg PO SCH (07:46)
[2019-11-26] MEDS: Vitamin THERAPEUTIC TAB PO SCH (07:46)
[2019-11-26 08:07] LABS: HDL Cholesterol 51.2 mg/dL
[2019-11-27] MEDS: Vitamin THERAPEUTIC TAB PO SCH (07:56)
[2019-11-27] MEDS: Venlafaxine XR 75 mg PO SCH (07:56)
[2019-11-27 08:17] VITALS: BP 110/69
== END 2019-11-27 14:25 | disposition home or self-care (01) | DRG 755 ==
LOC: ED 11:41 → BSU 14:43
PROVIDERS: ADMIT Psychiatry & Neurology Psychiatry; ATTEND Psychiatry & Neurology Psychiatry